=== PATIENT | female | born 1950 | race Caucasian/White ===

== ENCOUNTER 2023-05-20 10:28 | Outpatient (AMB) | payer MEDICARE, SELFPAY ==
--- NOTE | 2023-05-20 10:48 | MHC.OFFVIS ---
Intake Intake Visit Reasons: low back pain Shank Threader Required: No Assessment & Plan Assessment & Plan (1) Lumbar scoliosis: Code(s): M41.9 - Scoliosis, unspecified (2) Chronic pain syndrome: Code(s): G89.4 - Chronic pain syndrome Plan Dear colleague, On 05/20/2023, I saw Capri Arrieta for ongoing right pain that radiates from the back into her groin. We previously evaluated her in our [facility] practice. We referred her for SI joint injections and facet blocks. Unfortunately, does injections are no longer working. She does have a major lumbar scoliosis since her teenage years. I do not think that she is a surgical candidate to correct the scoliosis. I would like to refer to our pain management team to see if she is a candidate for a spinal cord stimulator to address her pain. I spent 15 minutes in this consult for preparation and discussing plan of care. Alejandro Coyle MD, PhD Spine Fellowship Trained Neurosurgeon Director, [facility] Orders: Referrals Pain Management Referral G89.4 - Chronic pain syndrome, M41.9 - Scoliosis, unspecified Coding Level of Care Code Est Pt Level 2 (12641) Diagnoses Lumbar scoliosis M41.9 Chronic pain syndrome G89.4
== END 2023-05-20 11:16 | disposition home or self-care (01) ==
PROVIDERS: PCP Student in an Organized Health Care Education/Training Program; Visit Provider Physician Assistant
DX: M41.9 Scoliosis, unspecified (principal); G89.4 Chronic pain syndrome
CPT/HCPCS: 99212

== ENCOUNTER → 2023-05-20 10:28 | Outpatient (BNVA) | payer MEDICARE, SELFPAY | PROVIDERS: PCP Student in an Organized Health Care Education/Training Program; Visit Provider Physician Assistant | DX: G89.4 Chronic pain syndrome (principal); M41.9 Scoliosis, unspecified | CPT/HCPCS: 99212 ==

== ENCOUNTER 2023-06-03 15:37 | Outpatient (AMB) | payer MEDICARE, SELFPAY ==
--- NOTE | 2023-06-03 15:40 | MHC.OFFVIS ---
Intake Vital Signs 06/03/23 15:57 Height 5 ft Weight 99 lb 8 oz BMI 19.4 BP 140/88 H Blood Pressure Location Rt brachial Position Sitting Respiration 16 Pulse 77 Pulse Source Pulse Oximeter Pulse Oximetry (%) 96 Oxygen Delivery Method Room Air Intake Visit Reasons: Chronic back to right hip Intake Note: patient comes in for initial visit was referred by . Allergies Penicillins Adverse Reaction (Mild, Verified 06/03/23 15:58) Hives pine nuts Allergy (Mild, Uncoded 06/03/23 15:48) Unconscious HPI HPI Comments History of Present Illness Details Capri is very pleasant 73 years old female who presents in my office with complains on pain in the back with radiation into the right lower extremity intermittently to the right thigh in the groin and intermittently all the way down to the foot with corresponding sensation of numbness and feeling of burning and stabbing sensation. She reports that this problem started 6-7 years ago. She reports her pain today is 5 to 6/10. She reports that sometimes the pain is 9 to 10/10. She reports that she cannot sleep normally cannot do activities of daily living she can take care of herself but she cannot function normally. She is on permanent disability. She has severe scoliosis of the lumbar spine with compensatory thoracic changes. She is using cane for ambulation. Weather changes aggravate her pain movements aggravate her pain. Cold applications sometimes make her pain better. Topical medications and oral medications make her pain minimally better. In the past she was under care of [facility] and she was evaluated by neurosurgeon Dr. Coyle. Dr. Coyle did not find any reason to operate on her because of her severe stenosis at L3-L4 area. She denies pelvic organ dysfunction, she denies incontinence with urine and/or stool, she denies urinary retention. She was under care of Dr. Mitchell Smith from [facility], she was subject of multiple sessions of physical therapy , she had chiropractic manipulations of multiple sessions and she had massage therapy with only temporary effect on her pain. Over the years she received multiple epidural steroid injections and L3 L4 on the right at [facility]. Initially she reported 6 or 7 months improvement on epidural steroid injections however with years the epidural steroid injection fade in effectiveness. She went back to Dr. Coyle and she was recommended to have facet joint injections, medial branch blocks and sacroiliac joint injections. Those injections were performed by [facility] and unfortunately those procedures were not effective for pain control. She tried NSAIDs to treat her pain and originally they were helping her but with years she escalated the doses of NSAIDs to 800 mg several times a day. She started to develop widespread bruises on her arms and forearms because of high doses of the NSAIDs and she had to stop the medication. She was referred to my office for consideration of neuromodulation. She had MRI of the lumbar spine performed with [facility], the dictation of the MRI is as below. In terms of tissue damage she reports her pain as shooting, stabbing, sharp, crushing, tugging, ranging, hot burning, searing, tingling, stinging, hurting, heavy, exhausting, suffocating, fearful, terrifying, punishing, killing, radiating, piercing, squeezing, tearing sensation. Past medical history significant for headache, fatigue, dizziness, history of heart murmur digestive problems and arthritis. She also reports venereal disease however she did not specify which one she had in mind. Her past surgical history significant for appendectomy ovarian cyst removal emergency hysterectomy, carpal tunnel surgery. She reports that she smokes [employer] on a up to 6-7 joints today. She drinks alcohol she denies drug addiction she denies alcohol and drug rehabilitation. Review of Systems Const All systems reviewed & are unremarkable except as noted in HPI and below Reports fatigue and Reports lethargy ENT Reports Normal hearing present Card Reports no additional complaints Resp Reports no additional complaints GI Reports no additional complaints Musc Reports as per HPI Skin/Breast Reports as per HPI Neuro Reports no additional complaints, Reports Normal hearing present, Denies Abnormal speech present, Denies confusion and Denies Sensory deficit (Neuro) Psych Denies confusion Endo Reports fatigue Physical Exam Vital Signs: Last Vital Signs Pulse 77 06/03/23 15:57 Resp 16 06/03/23 15:57 BP 140/88 H 06/03/23 15:57 Pulse Ox 96 06/03/23 15:57 Oxygen Delivery Method Room Air 06/03/23 15:57 BMI result Body Mass Index 19.4 Const General: no acute distress; No confusion Orientation/consciousness: patient oriented x3 and No confusion Eyes General: appearance normal, both eyes and all related structures Pupils: Equal, round and reactive pupils present EOM: EOMs intact bilaterally Neck Neck: Yes full ROM Chest Chest palpation & inspection: normal inspection of the chest Resp Effort & Inspection: normal respiratory effort, able to speak in complete sentences, normal respiratory pattern, no audible wheezes and no cough Cardio Jugular venous distension: no JVD GI Inspection: Yes normal to inspection Back/Spine/Pelvis Other: On the expect herrera exaggerated kyphotic curve of the thoracic spine. Severe leftward scoliotic curve of the lumbar spine. Tenderness on palpation over the right SI joint and right sciatic notch. No tenderness on palpation over spinous processes or paraspinal muscles bilaterally. Limited flexion and extension due to pain and significant anatomical distortion. Able to stand on bilateral lower extremities without difficulty able to stand on tiptoes without difficulty. SLR is negative bilaterally Nuno test is negative bilaterally. Neuro General: patient oriented x3, gait normal and No confusion Cranial nerves: Yes CN's II-XII intact bilaterally, Yes Equal, round and reactive pupils present, Yes Normal hearing present and Yes Ability to bilaterally elevate shoulders present Speech: No Abnormal speech present Gait exam (Neuro): Normal gait present Motor exam (neuro): 5/5 motor strength present throughout Sensory Exam: No Sensory deficit (Neuro) Extrem Other: Hip exam no gross deformity no every time no edema no ecchymosis no tenderness of palpation over greater trochanter. No tenderness of palpation of the SI joint range of motion is intact. Lateral and medial hip rotation is negative for pain increase in the groin. General: No pedal edema Psych Speech and movement: Normal speech and movement present Affect: normal affect Attitude: cooperative Thought process: Normal thought process present Thought content: Normal thought content present Insight: Good insight present (Psych) Judgement: Good judgement present (Psych) Results Reviewed Results Reviewed: [facility] MRI of the lumbar spine 10/29/2021. Findings: There is significant scoliotic curvature with dominant level out scoliotic component centered at the L2-L3 level with dextroscoliotic curvature seen in the lower thoracic spine/thoracolumbar junction. There is a right lateral listhesis of T12 on L1 and L1 on L2 there is severe intervertebral disc height loss with endplate remodeling accentuated along the inner margins of the curvature. Marrow edema is seen across the endplates of L3-L4 and L4-L5. The distal spinal cord appears normal. The conus medullaris terminates normally at L1 level. 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 The posterior paraspinal musculature demonstrates fatty atrophy. Intra-abdominal and intrapelvic contents are within normal limits. Spinal level: : Grade 1 retrolisthesis. A symmetric right facet arthropathy. No spinal canal stenosis of foraminal nerve root compression. L2-L3: Grade 1 retrolisthesis with right more than left facet arthropathy. No spinal canal stenosis. Mild narrowing of the right neural foramina without foraminal nerve root compression. L3-L4: Grade 1 retrolisthesis with disc bulging and facet arthropathy. Left-sided synovial facet cyst measuring approximately 5 mm contributes to effacement of the left subarticular zone likely compression of the traversing L4 nerve root. Prominent epidural fat. Severe spinal canal stenosis with thecal sac compression. Moderate to severe right neural foraminal stenosis with mild compression of the exiting right L3 nerve root. L4-5: Disc bulging and left more than right facet arthropathy and underlying disc bulging with prominent epidural fat resulting in severe spinal canal stenosis with compression of the thecal sac and a symmetric compression of the traversing left L5 nerve root. No foraminal nerve root compression. L5-S1: Disc bulging with severe facet arthropathy. Severe left neural foraminal stenosis and with significant compression of exiting left L5 nerve root. A 10 mm cystic focus on the left neural foramina likely presents a synovial facet cyst and contributes to the left-sided foraminal nerve root compression. No spinal canal stenosis. Assessment & Plan Assessment & Plan (1) Chronic pain syndrome: Code(s): G89.4 - Chronic pain syndrome (2) Lumbar scoliosis: Code(s): M41.9 - Scoliosis, unspecified (3) Disc degeneration, lumbar: Code(s): M51.36 - Other intervertebral disc degeneration, lumbar region (4) Vertebrogenic low back pain: Code(s): M54.51 - Vertebrogenic low back pain (5) Radiculopathy, lumbar region: Code(s): M54.16 - Radiculopathy, lumbar region (6) Spinal stenosis, lumbar: Code(s): M48.061 - Spinal stenosis, lumbar region without neurogenic claudication Plan There is some discrepancy in this patient's clinical picture and MRI presentation. On clinical picture she exhibits classical symptoms of the right L3 radiculopathy. However on the MRI it is clearly dictated that the problem is at L3-L4 however it is directed to the passing L4 nerve root compression. That would be different radiculopathy symptoms. Currently after so many years of injections this patient certainly deserves consideration for neuromodulation. Spinal cord stimulator [employer] could be tried for this patient. Originally I gave patient brochure with [employer] SCS but now I think that with her severe scoliosis I need a wake-up test and I need to position the electrodes appropriately with rotational deformity of the spine along side the posterior columns of the spinal cord. Intrathecal pain pump can also be considered for this patient. She is on high dose of daily cannabis so I thing that the best option for her would be bupivacaine or baclofen trial, possibility exist to do clonidine trial as well. Prialt also can be taken into consideration if patient can afford this medication. Attention also was attracted to endplate remodeling of this patient on the MRI dictation with significant marrow edema. This could be an indication to vertebra genic pain of this patient. Intercept procedure could be tried in the case of: A. She does not past psychological evaluation in preparation for the [employer] SCS. B. SCS is tried she does not report pain relieve significant enough to justify implantation of [employer] SCS. In any case I need her to bring me the disc of the MRI from [email or web address] so I can evaluate her endplate changes and vertebra edema and remodeling by myself. She said that she will bring the disc for her appointment to me. Meanwhile will try to schedule her for psychological evaluation. She will give us a call and schedule an appointment as soon as she has the conversation with psychologist. Patient Instructions: I here by testify that I spent 1 hour evaluating this patient, examining this patient, reviewing outside organization records, planning her care and organizing this note. Coding Level of Care Code New Pt Level 5 (45511) Diagnoses Chronic pain syndrome G89.4 Lumbar scoliosis M41.9 Disc degeneration, lumbar M51.36 Vertebrogenic low back pain M54.51 Radiculopathy, lumbar region M54.16 Spinal stenosis, lumbar M48.061
[2023-06-03 15:57] VITALS: BP 140/88; PULSE 77; RESP 16; O2SAT 96; BMI 19.4
== END 2023-06-03 16:11 | disposition home or self-care (01) ==
PROVIDERS: PCP Student in an Organized Health Care Education/Training Program; Visit Provider Anesthesiology
DX: G89.4 Chronic pain syndrome (principal); M41.9 Scoliosis, unspecified; M51.36 Other intervertebral disc degeneration, lumbar region; M54.51 Vertebrogenic low back pain; M54.16 Radiculopathy, lumbar region; M48.061 Spinal stenosis, lumbar region without neurogenic claudication
CPT/HCPCS: 99205

== ENCOUNTER → 2023-06-03 15:37 | Outpatient (BNVA) | payer MEDICARE, SELFPAY | PROVIDERS: PCP Student in an Organized Health Care Education/Training Program; Visit Provider Anesthesiology ==

== ENCOUNTER → 2023-08-28 08:42 | Day surgery (SDC) | payer OTHER, SELFPAY ==
[2023-08-28 09:20] VITALS: BMI 20.8
[2023-08-28 10:28] VITALS: BP 144/75; PULSE 67; RESP 16; TEMP 36.7; O2SAT 97
--- NOTE | 2023-08-28 10:53 | PC.NURSE ---
pt found to be on turmeric. informed and after conversation, surgery canceled due to increased risk of bleeding. pt didn't have it on her list of meds in computer. i added it to her list. she will have to be rescheduled.
== END ==
PROVIDERS: PCP Student in an Organized Health Care Education/Training Program; Visit Provider Anesthesiology
DX: M48.061 Spinal stenosis, lumbar region without neurogenic claudication (principal); Z53.09 Procedure and treatment not carried out because of other contraindication; M41.9 Scoliosis, unspecified; Z79.899 Other long term (current) drug therapy

== ENCOUNTER 2023-09-11 06:02 | Day surgery (SDC) | payer OTHER, SELFPAY ==
[2023-09-09 13:53] VITALS: BMI 19.3
--- NOTE | 2023-09-10 09:44 | HO.ANESPROP2 ---
Documented by User: Kathy Landry NP 09/10/23 09:45 HPI - Anesthesia Eval Consult details Narrative: 73yo F for Spinal Cord Stimulation Trial [facility] Active Problems Active Problems: All Active Problems (Updated 08/28/23 @ 09:16 by Tabitha Segovia RN) Spinal stenosis, lumbar (Acute) Radiculopathy, lumbar region (Acute) Vertebrogenic low back pain (Acute) Disc degeneration, lumbar (Acute) Chronic pain syndrome (Acute) Lumbar scoliosis (Acute) Past Medical History Medical History Hypoglycemia Disc degeneration, lumbar Lumbar scoliosis Anxiety Asthma Back pain Arthritis Elevated cholesterol HTN (hypertension) Thyroid disease GERD (gastroesophageal reflux disease) Surgical History Surgical History Hx of ovarian cystectomy Hx of hysterectomy Hx of appendectomy Hx of tonsillectomy Social History Social History Patient Tobacco Use Status: Never used Tobacco Use of substances other than those prescribed or required for medical reasons: Yes Substance Use Type Other:: last used last night Substance Use Frequency: Daily Are you DNR?: No Advance Directives: No Advance Directives Information Provided: Yes Meds Allergies Allergy/AdvReac Type Severity Reaction Status Date / Time Penicillins AdvReac Mild Hives Verified 09/11/23 06:13 pine nuts Allergy Mild Unconscious Uncoded 06/03/23 15:48 Home Medications Medication Instructions Recorded Confirmed Last Taken Type electrolytes-dextrose oral See Rx Instructions .Route .COMPLEX 06/03/23 09/11/23 Unknown History solution (Pedialyte oral solution) fluticasone 100 mcg-salmeterol 50 1 ea inhalation BID 06/03/23 09/11/23 08/28/23 History mcg/dose blistr powdr for inhalation gabapentin 300 mg capsule 300 mg PO BEDTIME 06/03/23 09/11/23 Unknown History levothyroxine 25 mcg tablet 25 mcg PO DAILY 06/03/23 09/11/23 08/28/23 History lorazepam 0.5 mg tablet 0.5 mg PO BID PRN Anxiety 06/03/23 09/11/23 Unknown History losartan 50 mg tablet 50 mg PO DAILY 06/03/23 09/11/23 08/28/23 History oxybutynin chloride 10 mg 10 mg PO BEDTIME 06/03/23 09/11/23 Unknown History tablet,extended release 24 hr pantoprazole 40 mg tablet,delayed 40 mg PO BID 06/03/23 09/11/23 08/28/23 History release simvastatin 10 mg tablet 10 mg PO BEDTIME 06/03/23 09/11/23 Unknown History valacyclovir 500 mg tablet 500 mg PO DAILY 06/03/23 09/11/23 08/28/23 History cholecalciferol (vitamin D3) 25 25 mcg PO DAILY 08/28/23 09/11/23 Unknown History mcg (1,000 unit) tablet (Vitamin D3) turmeric 400 mg capsule 1,000 mg PO DAILY 08/28/23 09/11/23 08/27/23 History vitamin B complex 1 tab PO DAILY 08/28/23 09/11/23 08/27/23 History Exam Height,Weight and Vital Signs: Height 5 ft Weight 44.906 kg Assessment and Plan Assessment Anesthesia Assessment: Chart Reviewed Documented by User: Keanu Miranda MD 09/11/23 07:43 PMFSH Past Medical History Medical History Hypoglycemia Disc degeneration, lumbar Lumbar scoliosis Anxiety Asthma Back pain Arthritis Elevated cholesterol HTN (hypertension) Thyroid disease GERD (gastroesophageal reflux disease) Family History Family history of problems with anesthesia: No Surgical History Surgical History Hx of ovarian cystectomy Hx of hysterectomy Hx of appendectomy Hx of tonsillectomy History of Problems with Anesthesia: No Social History Social History Patient Tobacco Use Status: Never used Tobacco Use of substances other than those prescribed or required for medical reasons: Yes Substance Use Type Other:: last used last night Substance Use Frequency: Daily Are you DNR?: No Advance Directives: No Advance Directives Information Provided: Yes Meds Allergies Allergy/AdvReac Type Severity Reaction Status Date / Time Penicillins AdvReac Mild Hives Verified 09/11/23 06:13 pine nuts Allergy Mild Unconscious Uncoded 06/03/23 15:48 Home Medications Medication Instructions Recorded Confirmed Last Taken Type electrolytes-dextrose oral See Rx Instructions .Route .COMPLEX 06/03/23 09/11/23 Unknown History solution (Pedialyte oral solution) fluticasone 100 mcg-salmeterol 50 1 ea inhalation BID 06/03/23 09/11/23 08/28/23 History mcg/dose blistr powdr for inhalation gabapentin 300 mg capsule 300 mg PO BEDTIME 06/03/23 09/11/23 Unknown History levothyroxine 25 mcg tablet 25 mcg PO DAILY 06/03/23 09/11/23 08/28/23 History lorazepam 0.5 mg tablet 0.5 mg PO BID PRN Anxiety 06/03/23 09/11/23 Unknown History losartan 50 mg tablet 50 mg PO DAILY 06/03/23 09/11/23 08/28/23 History oxybutynin chloride 10 mg 10 mg PO BEDTIME 06/03/23 09/11/23 Unknown History tablet,extended release 24 hr pantoprazole 40 mg tablet,delayed 40 mg PO BID 06/03/23 09/11/23 08/28/23 History release simvastatin 10 mg tablet 10 mg PO BEDTIME 06/03/23 09/11/23 Unknown History valacyclovir 500 mg tablet 500 mg PO DAILY 06/03/23 09/11/23 08/28/23 History cholecalciferol (vitamin D3) 25 25 mcg PO DAILY 08/28/23 09/11/23 Unknown History mcg (1,000 unit) tablet (Vitamin D3) turmeric 400 mg capsule 1,000 mg PO DAILY 08/28/23 09/11/23 08/27/23 History vitamin B complex 1 tab PO DAILY 08/28/23 09/11/23 08/27/23 History Exam Airway Mallampati Class: II TM Dist: >3cm Neck ROM: Full Denture: Upper and Lower Heart: ok Lungs: ok Assessment and Plan Assessment Anesthesia Assessment: Anesthesia Plan Discussed Final Anesthetic Review Family History of Problems with Anesthesia: No History of Problems with Anesthesia: No NPO: Yes ASA Class: III Final Preanesthetic Review: No Changes in Pt Med Stat, Meds/Allgs Chart Reviewed, Consent Obtained/Reviewed and Anes Risks/Benef Reviewed Patient Risk: Intermediate Procedure Risk: Intermediate Anesthetic Plan Anesthetic Plan: MAC: and Agree w/ Assess. and Plan Disposition: Standard PACU
--- NOTE | ~2023-09-11 | FL_ITS ---
EXAMINATION: XR FLUOROSCOPY WITH IMAGES CLINICAL INFORMATION: Spinal cord stimulation trial COMPARISON: MRI lumbar spine from 10/24/2021 TECHNIQUE: Fluoroscopy Supervised By: Dr. Shannon. Fluoroscopy Time: 4.1 min. Cumulative Dose: 43.3 mGy. DAP: 6.46 Gycm2. Images: 3. FINDINGS: A few images are saved from the procedure. The electrodes for a spinal stimulator project over the posterior epidural space at T6-T9 levels. There is dextroscoliosis of the thoracolumbar spine. There appears to be mild degenerative right lateral listhesis of T12 on L1. FL/FL guidance in OR IMPRESSION: Fluoroscopic imaging guidance utilized during insertion of a spinal stimulator.
[2023-09-11 06:13] VITALS: BMI 18.6
[2023-09-11 06:41] VITALS: BP 123/80; PULSE 73; RESP 16; TEMP 36.7; O2SAT 99
--- NOTE | 2023-09-11 07:23 | MHC.SHP ---
Pre-Procedural Eval Section A Date of Service: 09/11/23 The patient is an INPATIENT: No Changes since office visit: Yes Patient answered all questions The History & Physical has been completed within 30 days and I have reviewed it.: No Section B Chief Complaint: Scoliosis, unspecified Details of Present Illness: as above, disc degeneration lumbar Relevant Family History (Specify if Yes): No Relevant Social History: None Present Medications: see Short Stay Collaborative assessment Medical History: No relevant PMH History of Previous Operations: No relevant previous surgery Allergies: Allergies Allergy/AdvReac Type Severity Reaction Status Date / Time Penicillins AdvReac Mild Hives Verified 09/11/23 06:13 pine nuts Allergy Mild Unconscious Uncoded 06/03/23 15:48 Review of Systems Sugical H&P ROS: Negative: Constitution, Cardiovascular, Respiratory, Neurological, Psychiatric, Hem-Onc, Allergic/Immunologic, Gastrointestinal, Genitourinary, Musculoskeletal, Integumentary, Endocrine and Eyes/Ears/Nose/Throat Exam Surgical H&P Exam: Normal: HEENT, Normal: Heart, Normal: Lungs, Normal: Extremities, Normal: Abdomen, Normal: Skin and Normal: Neurological Plan Diagnosis/Plan: Unchanged I have reviewed the history and physical and performed a pertinent physical examination on my patient. No changes have occurred unless specified. Time Spent With Patient Time: Total time managing care of this patient today __5__ minutes.
--- NOTE | 2023-09-11 09:26 | P.BOP_ITS ---
Brief Operative Note Date of Service: 09/11/23 Pre-op diagnosis: Lumbar scoliosis, disc degeneration lumbar. Post-op diagnosis: same Procedure: Trial of [employer] spinal cord stimulator Implants: None permanent Surgeon: Maco Shannon MD Anesthesia: MAC Was an Knotting Machine Operator Portable used for this Procedure?: No Estimated blood loss (mL): 4 Condition: stable Disposition: PACU
--- NOTE | 2023-09-11 09:28 | W.PM.OPN ---
Operative Note Operative Note Date of Service: 09/11/23 Narrative: Capri is very pleasant 73 years old female came today- to the operating room for trial of spinal cord stimulator [employer] for the treatment of scoliosis and spondylosis of lumbar spine. ?Preoperatively patient received ? clindamycin 900 mg approximately 25 minutes before the procedure. After obtaining informed consent the patient was brought to the operating room, she was positioned prone on operating table, ASA monitor were applied and the patient was moderately to deeply sedated. ?Time-out was performed delineating correct site, side, the nature of the procedure, patient's allergy, preoperative antibiotic if needed.? All operating room staff was participating in OR time-out procedure. Patient's entire back was prepped with Chloraprep twice and draped with full body fenestrated laparoscopy drape.? Sterilely draped C-arm was brought over operating field and square picture of the ?T11 and T12 vertebrae? were demonstrated on the screen.? Severe scoliosis and significant spondylosis of the lumbar and lower thoracic spine were noted on the screen. ?Attention FIRST? was concentrated on the right T11-T12 epidural interspace.? The location of the projection of the body of the L1 pedicle on the right was found on the skin using C-arm.? This location was injected with mixture of lidocaine 2% and Marcaine 0.5% - 5 cc.? After that 11 blade was used to make a mauricio on the skin.? 10 cm 14 gauge? introducer epidural needle was inserted through the mauricio and advanced to right T11-T12 epidural interspace.? The advancement of the needle was performed on anterior posterior and lateral views.?Loss of resistance to air? technique were used to locate epidural space., get our wire was used to confirm epidural space. epidural lead was inserted through the needle and? advanced in the strict midline to T7 top vertebra. The position of the electrode was in the most posterior epidural space. ? .? After that? the location of the projection of the LEFT pedicle center of the? L1 vertebra was found on the skin using C-arm.? This location was injected with mixture of lidocaine 2% and Marcaine 0.5% 5 cc.? After that 11 blade was used to make a mauricio on the skin.? 10 cm 14 gauge introducer epidural needle was inserted through the mauricio and advanced to T11-T12 epidural interspace.? The advancement of the needle was performed on anterior posterior and lateral views.? Guitar wire and loss of resistance to air technique were used to locate epidural space.? When guitar wire was spread in the epidural fashion, epidural lead was inserted through the needle and advanced to the middle of? top of T7 epidural interspace slightly? right to the existing electrode. Lateral view demonstrated electrodes in the posterior epidural space. Impedance was checked, 1 of the testing cables appeared to be defective and it was replaced? and after that the impedance- was found to be satisfactory.? The patient was awaken and stimulation of both electrodes was performed. The patient reported stimulation in the anterior chest as if the electrodes would be positioned more anteriorly. Most likely it is because of the position of her thoracolumbar scoliosis and rotation of the spinal cord inside of the spinal canal. The centrally positioned electrode was withdrawn down to T11-T12 interspace and it was taken to the right side of positioned on the right inserted from the left electrode in the posterior epidural space at the top of T7 vertebra. On the lateral view electrode still were demonstrated posteriorly.. Stimulation was repeated. The patient however continued to complain on stimulation in the chest. Than the right inserted electrode was taken down to the T11- interspace and it was advanced now right to existing electrode again into the posterior epidural space at the level of T7 vertebra at the top. After that the patient reported stimulation going down to bilateral lower extremities. It looks like that we found physiological posterior spinal cord position and stimulated it appropriately. After that the patient was re sedated ?the needles were removed, the stylette wires were removed from the epidural leads.? The anchoring devices were mounted on the leads and advanced to the level of the skin.? The anchoring devices were sutured with two 0-0 ?Silk sutures per each anchor to the skin of the patient. The central fixation screw of each anchor was rotated until three clicks were heard. The leads were connected to testing device.? Bacitracin ointment was applied to the entrance point of bilateral wires.? Sterile dressing was applied to the patient's back.? The testing device was also taped to the patient's back.? the patient tolerated procedure well she was awaken and taken outside of the operating room to recovery room. She recovered uneventfully.
[2023-09-11 09:32] VITALS: BP 103/66; PULSE 63; RESP 18; TEMP 36.9; O2SAT 100
[2023-09-11 09:47] VITALS: BP 153/102; PULSE 58; RESP 20; O2SAT 100
[2023-09-11 10:02] VITALS: BP 162/83; PULSE 59; RESP 20; TEMP 36.8; O2SAT 100
== END 2023-09-11 11:22 | disposition home or self-care (01) ==
PROVIDERS: Visit Provider Anesthesiology
PROC: (CPT 63650; principal; 2023-09-11 07:30)
DX: M41.9 Scoliosis, unspecified (principal); G89.4 Chronic pain syndrome; M48.061 Spinal stenosis, lumbar region without neurogenic claudication; M51.36 Other intervertebral disc degeneration, lumbar region; M54.51 Vertebrogenic low back pain; M54.16 Radiculopathy, lumbar region; M47.816 Spondylosis without myelopathy or radiculopathy, lumbar region; M47.814 Spondylosis without myelopathy or radiculopathy, thoracic region; R20.0 Anesthesia of skin; R20.2 Paresthesia of skin; Z88.0 Allergy status to penicillin; F12.90 Cannabis use, unspecified, uncomplicated
CPT/HCPCS: 63650 ×2; C1713; C1778; J0736; J2704; J2795; J3010

== ENCOUNTER → 2023-09-11 06:02 | Outpatient (BNV) | payer OTHER, SELFPAY | PROVIDERS: Visit Provider Anesthesiology | DX: M41.9 Scoliosis, unspecified (principal) | CPT/HCPCS: 63650 ==

== ENCOUNTER 2023-09-17 09:53 | Outpatient (AMB) | payer OTHER, SELFPAY ==
--- NOTE | 2023-09-17 09:54 | MHC.OFFVIS ---
Intake Vital Signs 09/17/23 10:15 Height 5 ft Weight 95 lb BMI 18.6 BP 116/84 Blood Pressure Location Lt brachial Position Sitting Respiration 14 Pulse 79 Pulse Source Pulse Oximeter Pulse Oximetry (%) 99 Oxygen Delivery Method Room Air Intake Visit Reasons: S/p [employer] SCS Trial Intake Note: Patient comes in for [employer] scs trial. Reports pain 7/10. Allergies Penicillins Adverse Reaction (Mild, Verified 09/17/23 10:15) Hives pine nuts Allergy (Mild, Uncoded 06/03/23 15:48) Unconscious HPI HPI Comments History of Present Illness Details Capri is back in my office status post trial of [employer] spinal cord stimulator. The trial was very difficult to perform. I had to chief position of the epidural leads 3 times more to the right to finally obtain proper stimulation. The patient has severe scoliosis with prominent rotational element and her posterior spinal cord position is not corresponds to posterior sq image of the thoracic spine. She came to me today with report that she had 85-90 % pain alleviation with her spinal cord stimulation device. She was very upset when I told her that I need to remove the spinal cord stimulator leads today. She wants me to schedule her for the procedure as soon as possible. I promised to her that I will expedite this procedure as much as I can. The dressing was removed and spinal cord stimulator site insertions were prepped with ChloraPrep. Anchoring sutures were severed and the spinal cord stimulator leads were removed. The tips were intact. There were no pathological discharge, no swelling, no redness, no tenderness on palpation. Dry dressing with Tegaderm was applied. The patient was explained to avoid showers for next 24-48 hours. Prior: complains on pain in the back with radiation into the right lower extremity intermittently to the right thigh in the groin and intermittently all the way down to the foot with corresponding sensation of numbness and feeling of burning and stabbing sensation. She reports that this problem started 6-7 years ago. She reports her pain today is 5 to 6/10. She reports that sometimes the pain is 9 to 10/10. Topical medications and oral medications make her pain minimally better. In the past she was under care of [facility] and she was evaluated by neurosurgeon Dr. Coyle. Dr. Coyle did not find any reason to operate on her because of her severe stenosis at L3-L4 area. She denies pelvic organ dysfunction, she denies incontinence with urine and/or stool, she denies urinary retention. She was under care of Dr. Mitchell Smith from [facility], she was subject of multiple sessions of physical therapy , she had chiropractic manipulations of multiple sessions and she had massage therapy with only temporary effect on her pain. Over the years she received multiple epidural steroid injections and L3 L4 on the right at [facility]. Initially she reported 6 or 7 months improvement on epidural steroid injections however with years the epidural steroid injection fade in effectiveness. She went back to Dr. Coyle and she was recommended to have facet joint injections, medial branch blocks and sacroiliac joint injections. Those injections were performed by [facility] and unfortunately those procedures were not effective for pain control. She tried NSAIDs to treat her pain and originally they were helping her but with years she escalated the doses of NSAIDs to 800 mg several times a day. She started to develop widespread bruises on her arms and forearms because of high doses of the NSAIDs and she had to stop the medication. [facility] Medical History (Updated 09/17/23 @ 15:10 by Maco Shannon MD) Chronic pain syndrome Hypoglycemia Disc degeneration, lumbar Lumbar scoliosis Anxiety Asthma Back pain Arthritis Elevated cholesterol HTN (hypertension) Thyroid disease GERD (gastroesophageal reflux disease) Surgical History Hx of ovarian cystectomy Hx of hysterectomy Hx of appendectomy Hx of tonsillectomy Social History Patient Tobacco Use Status: Never used Tobacco Review of Systems Const All systems reviewed & are unremarkable except as noted in HPI and below ENT Reports Normal hearing present Neuro Reports Normal hearing present, Denies Abnormal speech present, Denies confusion and Denies Sensory deficit (Neuro) Psych Denies confusion Physical Exam Vital Signs: Last Vital Signs Pulse 79 09/17/23 10:15 Resp 14 09/17/23 10:15 BP 116/84 09/17/23 10:15 Pulse Ox 99 09/17/23 10:15 Oxygen Delivery Method Room Air 09/17/23 10:15 BMI result Body Mass Index 18.6 Const General: no acute distress; No confusion Orientation/consciousness: patient oriented x3 and No confusion Eyes General: appearance normal, both eyes and all related structures Pupils: Equal, round and reactive pupils present EOM: EOMs intact bilaterally Neck Neck: Yes full ROM Chest Chest palpation & inspection: normal inspection of the chest Resp Effort & Inspection: normal respiratory effort, able to speak in complete sentences, normal respiratory pattern, no audible wheezes and no cough Cardio Jugular venous distension: no JVD GI Inspection: Yes normal to inspection Back/Spine/Pelvis Other: On the e inspection exaggerated kyphotic curve of the thoracic spine. Severe leftward scoliotic curve of the lumbar spine. Tenderness on palpation over the right SI joint and right sciatic notch. No tenderness on palpation over spinous processes or paraspinal muscles bilaterally. Limited flexion and extension due to pain and significant anatomical distortion. Able to stand on bilateral lower extremities without difficulty able to stand on tiptoes without difficulty. SLR is negative bilaterally Nuno test is negative bilaterally. Neuro General: patient oriented x3, gait normal and No confusion Cranial nerves: Yes CN's II-XII intact bilaterally, Yes Equal, round and reactive pupils present, Yes Normal hearing present and Yes Ability to bilaterally elevate shoulders present Speech: No Abnormal speech present Gait exam (Neuro): Normal gait present Motor exam (neuro): 5/5 motor strength present throughout Sensory Exam: No Sensory deficit (Neuro) Extrem Other: Hip exam no gross deformity no every time no edema no ecchymosis no tenderness of palpation over greater trochanter. No tenderness of palpation of the SI joint range of motion is intact. Lateral and medial hip rotation is negative for pain increase in the groin. General: No pedal edema Psych Speech and movement: Normal speech and movement present Affect: normal affect Attitude: cooperative Thought process: Normal thought process present Thought content: Normal thought content present Insight: Good insight present (Psych) Judgement: Good judgement present (Psych) Results Reviewed Results Reviewed: ray[facility] MRI of the lumbar spine 10/29/2021. Findings: There is significant scoliotic curvature with dominant level out scoliotic component centered at the L2-L3 level with dextroscoliotic curvature seen in the lower thoracic spine/thoracolumbar junction. There is a right lateral listhesis of T12 on L1 and L1 on L2 there is severe intervertebral disc height loss with endplate remodeling accentuated along the inner margins of the curvature. Marrow edema is seen across the endplates of L3-L4 and L4-L5. The distal spinal cord appears normal. The conus medullaris terminates normally at L1 level. 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 The posterior paraspinal musculature demonstrates fatty atrophy. Intra-abdominal and intrapelvic contents are within normal limits. Spinal level: : Grade 1 retrolisthesis. A symmetric right facet arthropathy. No spinal canal stenosis of foraminal nerve root compression. L2-L3: Grade 1 retrolisthesis with right more than left facet arthropathy. No spinal canal stenosis. Mild narrowing of the right neural foramina without foraminal nerve root compression. L3-L4: Grade 1 retrolisthesis with disc bulging and facet arthropathy. Left-sided synovial facet cyst measuring approximately 5 mm contributes to effacement of the left subarticular zone likely compression of the traversing L4 nerve root. Prominent epidural fat. Severe spinal canal stenosis with thecal sac compression. Moderate to severe right neural foraminal stenosis with mild compression of the exiting right L3 nerve root. L4-5: Disc bulging and left more than right facet arthropathy and underlying disc bulging with prominent epidural fat resulting in severe spinal canal stenosis with compression of the thecal sac and a symmetric compression of the traversing left L5 nerve root. No foraminal nerve root compression. L5-S1: Disc bulging with severe facet arthropathy. Severe left neural foraminal stenosis and with significant compression of exiting left L5 nerve root. A 10 mm cystic focus on the left neural foramina likely presents a synovial facet cyst and contributes to the left-sided foraminal nerve root compression. No spinal canal stenosis. Assessment & Plan Assessment & Plan (1) Chronic pain syndrome: Code(s): G89.4 - Chronic pain syndrome (2) Lumbar scoliosis: Code(s): M41.9 - Scoliosis, unspecified (3) Disc degeneration, lumbar: Code(s): M51.36 - Other intervertebral disc degeneration, lumbar region (4) Vertebrogenic low back pain: Code(s): M54.51 - Vertebrogenic low back pain (5) Radiculopathy, lumbar region: Code(s): M54.16 - Radiculopathy, lumbar region (6) Spinal stenosis, lumbar: Code(s): M48.061 - Spinal stenosis, lumbar region without neurogenic claudication Plan There is some discrepancy in this patient's clinical picture and MRI presentation. On clinical picture she exhibits classical symptoms of the right L3 radiculopathy. However on the MRI it is clearly dictated that the problem is at L3-L4 however it is directed to the passing L4 nerve root compression. That would be different radiculopathy symptoms. Currently after so many years of injections this patient certainly deserves consideration for neuromodulation. Spinal cord stimulator [employer] trial resulted in very profound pain relief.. I will schedule this patient for implantation of the [employer] spinal cord stimulator. It will be done under sedation with wake-up test. Part Intrathecal pain pump can also be considered for this patient. She is on high dose of daily cannabis so I thing that the best option for her would be bupivacaine or baclofen trial, possibility exist to do clonidine trial as well. Prialt also can be taken into consideration if patient can afford this medication. Attention also was attracted to endplate remodeling of this patient on the MRI dictation with significant marrow edema. This could be an indication to vertebra genic pain of this patient. Intercept procedure could still be tried for this patient. I recommended her still to bring me the image disc from prior MRI records [facility]. Patient Instructions: I here by testify that I spent 38 minutes in conversation with this patient, evaluating prior records, planning her procedure and organizing this note. Coding Level of Care Code Est Pt Level 4 (55111) Diagnoses Chronic pain syndrome G89.4 Lumbar scoliosis M41.9 Disc degeneration, lumbar M51.36 Vertebrogenic low back pain M54.51 Radiculopathy, lumbar region M54.16 Spinal stenosis, lumbar M48.061
[2023-09-17 10:15] VITALS: BP 116/84; PULSE 79; RESP 14; O2SAT 99; BMI 18.6
== END 2023-09-17 10:11 | disposition home or self-care (01) ==
LOC: HO.PMC 09:53
PROVIDERS: Visit Provider Anesthesiology
DX: G89.4 Chronic pain syndrome (principal); M41.9 Scoliosis, unspecified; M51.36 Other intervertebral disc degeneration, lumbar region; M54.51 Vertebrogenic low back pain; M54.16 Radiculopathy, lumbar region; M48.061 Spinal stenosis, lumbar region without neurogenic claudication
CPT/HCPCS: 99024

== ENCOUNTER → 2023-09-17 09:53 | Outpatient (BNVA) | payer OTHER, SELFPAY | PROVIDERS: Visit Provider Anesthesiology | DX: G89.4 Chronic pain syndrome (principal); M41.9 Scoliosis, unspecified; M51.36 Other intervertebral disc degeneration, lumbar region; M54.51 Vertebrogenic low back pain; M54.16 Radiculopathy, lumbar region; M48.061 Spinal stenosis, lumbar region without neurogenic claudication | CPT/HCPCS: 99212 ==

== ENCOUNTER 2023-11-13 07:13 | Day surgery (SDC) | payer OTHER, SELFPAY ==
[2023-11-11 13:53] VITALS: BMI 18.6
--- NOTE | 2023-11-11 15:13 | HO.ANESPROP2 ---
HPI - Anesthesia Eval Consult details Narrative: 73yo F for Spinal Cord Stimulation Implant s/p trial 09/11/23 with [employer] [facility] Active Problems Active Problems: All Active Problems (Updated 09/17/23 @ 15:10 by Maco Shannon MD) Chronic pain syndrome (Acute) Spinal stenosis, lumbar (Acute) Radiculopathy, lumbar region (Acute) Vertebrogenic low back pain (Acute) Disc degeneration, lumbar (Acute) Lumbar scoliosis (Acute) Past Medical History Medical History Chronic pain syndrome Hypoglycemia Disc degeneration, lumbar Lumbar scoliosis Anxiety Asthma Back pain Arthritis Elevated cholesterol HTN (hypertension) Thyroid disease GERD (gastroesophageal reflux disease) Family History Family history of problems with anesthesia: No Surgical History Surgical History Hx of ovarian cystectomy Hx of hysterectomy Hx of appendectomy Hx of tonsillectomy History of Problems with Anesthesia: No Social History Social History Patient Tobacco Use Status: Never used Tobacco Second Hand Smoke Exposure: No Meds Allergies Allergy/AdvReac Type Severity Reaction Status Date / Time Penicillins AdvReac Mild Hives Verified 09/17/23 10:15 pine nuts Allergy Mild Unconscious Uncoded 06/03/23 15:48 Home Medications Medication Instructions Recorded Confirmed Last Taken Type electrolytes-dextrose oral See Rx Instructions .Route .COMPLEX 06/03/23 09/11/23 Unknown History solution (Pedialyte oral solution) fluticasone 100 mcg-salmeterol 50 1 ea inhalation BID 06/03/23 09/11/23 08/28/23 History mcg/dose blistr powdr for inhalation gabapentin 300 mg capsule 300 mg PO BEDTIME 06/03/23 09/11/23 Unknown History levothyroxine 25 mcg tablet 25 mcg PO DAILY 06/03/23 09/11/23 08/28/23 History lorazepam 0.5 mg tablet 0.5 mg PO BID PRN Anxiety 06/03/23 09/11/23 Unknown History losartan 50 mg tablet 50 mg PO DAILY 06/03/23 09/11/23 08/28/23 History oxybutynin chloride 10 mg 10 mg PO BEDTIME 06/03/23 09/11/23 Unknown History tablet,extended release 24 hr pantoprazole 40 mg tablet,delayed 40 mg PO BID 06/03/23 09/11/23 08/28/23 History release simvastatin 10 mg tablet 10 mg PO BEDTIME 06/03/23 09/11/23 Unknown History valacyclovir 500 mg tablet 500 mg PO DAILY 06/03/23 09/11/23 08/28/23 History cholecalciferol (vitamin D3) 25 25 mcg PO DAILY 08/28/23 09/11/23 Unknown History mcg (1,000 unit) tablet (Vitamin D3) turmeric 400 mg capsule 1,000 mg PO DAILY 08/28/23 09/11/23 08/27/23 History vitamin B complex 1 tab PO DAILY 08/28/23 09/11/23 08/27/23 History Exam Height,Weight and Vital Signs: Height 5 ft Weight 43.091 kg Assessment and Plan Assessment Anesthesia Assessment: Chart Reviewed Final Anesthetic Review Family History of Problems with Anesthesia: No History of Problems with Anesthesia: No
[2023-11-13] VITALS (10 sets, daily range): BP systolic 83–136; BP diastolic 50–95; PULSE 52–68; RESP 15–18; TEMP 36.5–36.7; O2SAT 94–99; BMI 18.6
--- NOTE | ~2023-11-13 | FL_ITS ---
EXAMINATION: XR FLUOROSCOPY WITH IMAGES CLINICAL INFORMATION: Spinal stimulator implant. COMPARISON: CT cervical spine dated 02/08/2023. TECHNIQUE: Fluoroscopy Supervised By: Dr. Maco Shannon. Fluoroscopy Time: 7.3 minutes. Cumulative Dose: 92.9 mGy. DAP: 12.8 Gycm2. Images: 5. FINDINGS: The submitted images show placement of a spinal stimulator device with electrodes projecting over the mid to lower thoracic spine. FL/FL guidance in OR IMPRESSION: Intraoperative fluoroscopic guidance is provided spinal stimulator implant placement. Please see the patient's Operative Report for full procedural details.
--- NOTE | 2023-11-13 07:28 | P.CONAN_ITS ---
[facility] Active Problems Active Problems: All Active Problems (Updated 09/17/23 @ 15:10 by Maco Shannon MD) Chronic pain syndrome (Acute) Spinal stenosis, lumbar (Acute) Radiculopathy, lumbar region (Acute) Vertebrogenic low back pain (Acute) Disc degeneration, lumbar (Acute) Lumbar scoliosis (Acute) Past Medical History Medical History Chronic pain syndrome Hypoglycemia Disc degeneration, lumbar Lumbar scoliosis Anxiety Asthma Back pain Arthritis Elevated cholesterol HTN (hypertension) Thyroid disease GERD (gastroesophageal reflux disease) Functional capacity: independent ambulation Patient : No Family History Family history of problems with anesthesia: No Surgical History Surgical History Hx of ovarian cystectomy Hx of hysterectomy Hx of appendectomy Hx of tonsillectomy History of Problems with Anesthesia: No Social History Social History Patient Tobacco Use Status: Never used Tobacco Advance Directives: No Advance Directives Information Provided: Yes Meds Allergies Allergy/AdvReac Type Severity Reaction Status Date / Time Penicillins AdvReac Mild Hives Verified 09/17/23 10:15 pine nuts Allergy Mild Unconscious Uncoded 06/03/23 15:48 Home Medications Medication Instructions Recorded Confirmed Last Taken Type electrolytes-dextrose oral See Rx Instructions .Route .COMPLEX 06/03/23 09/11/23 Unknown History solution (Pedialyte oral solution) fluticasone 100 mcg-salmeterol 50 1 ea inhalation BID 06/03/23 09/11/23 08/28/23 History mcg/dose blistr powdr for inhalation gabapentin 300 mg capsule 300 mg PO BEDTIME 06/03/23 09/11/23 Unknown History levothyroxine 25 mcg tablet 25 mcg PO DAILY 06/03/23 09/11/23 08/28/23 History lorazepam 0.5 mg tablet 0.5 mg PO BID PRN Anxiety 06/03/23 09/11/23 Unknown History losartan 50 mg tablet 50 mg PO DAILY 06/03/23 09/11/23 08/28/23 History oxybutynin chloride 10 mg 10 mg PO BEDTIME 06/03/23 09/11/23 Unknown History tablet,extended release 24 hr pantoprazole 40 mg tablet,delayed 40 mg PO BID 06/03/23 09/11/23 08/28/23 History release simvastatin 10 mg tablet 10 mg PO BEDTIME 06/03/23 09/11/23 Unknown History valacyclovir 500 mg tablet 500 mg PO DAILY 06/03/23 09/11/23 08/28/23 History cholecalciferol (vitamin D3) 25 25 mcg PO DAILY 08/28/23 09/11/23 Unknown History mcg (1,000 unit) tablet (Vitamin D3) turmeric 400 mg capsule 1,000 mg PO DAILY 08/28/23 09/11/23 08/27/23 History vitamin B complex 1 tab PO DAILY 08/28/23 09/11/23 08/27/23 History Exam Height,Weight and Vital Signs: Height 5 ft Weight 43.091 kg Airway Mallampati Class: II TM Dist: >3cm Neck ROM: Full Heart: RRR Lungs: CTA Assessment and Plan Assessment Anesthesia Assessment: Anesthesia Plan Discussed Final Anesthetic Review Family History of Problems with Anesthesia: No History of Problems with Anesthesia: No NPO: Yes ASA Class: II Final Preanesthetic Review: Meds/Allgs Chart Reviewed, Consent Obtained/Reviewed and Anes Risks/Benef Reviewed Patient Risk: Low Procedure Risk: Low Anesthetic Plan Anesthetic Plan: MAC: Disposition: Standard PACU
[2023-11-13] MEDS: Lactated Ringers 1,000 ML 100 ML IVCONT (08:26)
--- NOTE | 2023-11-13 12:14 | PM.OP ---
Brief Operative Note Date of Service: 11/13/23 Pre-op diagnosis: Chronic pain syndrome, scoliosis, spondylosis. Post-op diagnosis: same Procedure: Implantation of [employer] spinal cord stimulator. Implants: Alpha battery [employer] as well as 2 epidural electrodes. Surgeon: Maco Shannon MD Anesthesia: MAC Was an Telehealth Case Manager used for this Procedure?: No Estimated blood loss (mL): 15 Condition: stable Disposition: PACU
--- NOTE | 2023-11-13 12:21 | W.PM.OPN ---
Operative Note Operative Note Date of Service: 11/13/23 Narrative: Implantation of spinal cord stimulator [employer]. Kaleb she is very pleasant 73 years old female who came today into the operating room for implantation of spinal cord stimulator for the treatment of chronic pain syndrome secondary to spondylosis and scoliosis of thoracolumbar spine.. She had successful trial of the SCS [employer]. Preoperatively? patient received ?clindamycin 900 mg approximately 30 minutes before the procedure. After obtaining informed consent the patient was brought to the operating room, she was positioned prone on the OR table, ? [employer] monitors were applied and patient was sedated. ?Time-out was performed delineating correct site, side, the nature of the procedure, patient's allergy, preoperative antibiotic if needed.? All operating room staff was participating in OR time-out procedure. Patient's entire back was prepped with ChloraPrep twice and draped with full body fenestrated drape and ioban film.? Sterilely draped C-arm was brought over operating field and square picture of?T11-T12 L1 vertebrae as were demonstrated on the screen.? The skin in the projection of the spinous processes of T12-L1 was? infiltrated with the mixture of lidocaine 2% and ropivacaine 0.5% i.? After that? number 10 Blade scalpel was used to perform vertical 6 cm? long incision.? the incision was widened and deepened until the prevertebral fascia was reached. Thorough hemostasis was obtained,? After that attention? was concentrated on the T10-T11 epidural interspace.? The location of the projection of the right pedicle center of the? T12 vertebra was found on the fascia using C-arm.? This location was injected with mixture of lidocaine 2% and Marcaine 0.5% 5 cc.? ? 10 cm 14 gauge? introducer epidural needle was inserted through the prevertebral fascia and advanced to? T10-T11 right epidural interspace.? The advancement of the needle was performed on anterior posterior and lateral views.? Guitar wire and loss of resistance technique were used to locate epidural space.? When guitar wire was spread in the epidural fashion, epidural lead was inserted through the needle and it was advanced to the posterior epidural space slightly right to the midline.The lead was advanced slightly red to the midline midline? approximately to the? top of T7 vertebra in the posterior epidural space. Position of the lead in the posterior epidural space was verified. ? After that location of the projection of the LEFT pedicle center of the T12 vertebra was found using C-arm.? This location was injected with mixture of lidocaine 2% and Marcaine 0.5% 5 cc.?10 cm 14 gauge? introducer epidural needle was inserted through the fascia and advanced to T10-T11 left epidural interspace.? The advancement of the needle was performed on anterior posterior and lateral views.? Guitar wire and loss of resistance technique were used to locate epidural space.? When guitar wire was spread in the epidural fashion, epidural lead was inserted through the needle and it was advanced to the posterior epidural space.The lead was advanced slightly left to the existing electrode to the?top of T 7 vertebra in the posterior epidural space. .?On the lateral view the leads were demonstrated in the posterior epidural space. At this moment the patient was started to be awaken to perform a wake-up test. The patient was very restless waking up. Despite her small size she was wiggling on the operating table so strong that it required operating room nurse who is big and strong man as well as myself and my electronic development technician to hold her down and prevents her from falling off of the operating table. This is all despite the fact that patient was secured to the operative table before the procedure with wide security belt at her hips level. The decision was made to abandon the wake-up trial and re- sedated the patient. At this moment I positioned electrodes as close as possible to the locations of the electrode on the image she had during the trial., the needles were removed, the stylette wires were removed from the epidural leads.? The anchoring devices were dislodged on the leads and advanced to the level of the prevertebral fascia.?After that the anchoring devices were sutured to the prevertebral fascia using Tycron 0-0 sutures - 2 sutures per each anchoroing device?. The fixation scews were locked until 3 clicks heard. The wound was irrigated with vancomycin containing saline and packed with the 4x4 soaked with the same saline solution. After that attention was concentrated on the left? upper buttock of the patient ? were the decision was made to implant the battery.? 2.5 cm below the top of the left iliac crest horizontal incision was made 6 cm long using 10 blade scalpel, hemostasis was performed using? electric cautery..? Using sharp and dull dissection the pocket for the battery was formed in caudad direction from the incision.? Thorough hemostasis was performed.? After that the? wound pocket was? irrigated with vancomycin containing normal saline and tunneling device was used to connect midline incision and upper buttock incision.? The epidural leads were dislodged from midline incision to the buttock incision through the tunneling device.? After that they were connected to the alpha battery? and impedance was checked? and found to be satisfactory with all leads connected.? There were no electrodes with low impedance noted.? Anchoring? screws were fixed on the back of the battery.? Tycron of 0- 0 sutures were applied to the superior lateral and superior medial corners of the upper portion of the pocket? wound and after that the anchoring sutures were connected to the anchoring orifices on the battery.? The leads were gathered behind the body of the battery and battery was dislodged into the? subcutaneous pocket wound.? The sutures were tied and? irrigation was repeated.? After that?0-0 Polysorb sutures?were used to close the? both wounds and the 0-2 polisorb sutures were used to apptoximate the level of the skin , [place] were applied to the skin and bacitracin ointment was applied to the staple lines. The sterile dressing comprised of several 4x4 for each wound was affixed to the skin using tegaderm. The patient was transfered supine on the stretcher,? awaken, transferred stable to the PACU
== END 2023-11-13 14:30 | disposition home or self-care (01) ==
PROVIDERS: Visit Provider Anesthesiology
PROC: (CPT 63685; principal; 2023-11-13 09:30)
DX: M47.815 Spondylosis without myelopathy or radiculopathy, thoracolumbar region (principal); G89.4 Chronic pain syndrome; M41.9 Scoliosis, unspecified; M51.36 Other intervertebral disc degeneration, lumbar region; M54.16 Radiculopathy, lumbar region; M54.51 Vertebrogenic low back pain; M48.061 Spinal stenosis, lumbar region without neurogenic claudication; I10 Essential (primary) hypertension; E78.00 Pure hypercholesterolemia, unspecified; E16.2 Hypoglycemia, unspecified; J45.909 Unspecified asthma, uncomplicated; Z79.51 Long term (current) use of inhaled steroids; Z79.899 Other long term (current) drug therapy; Z88.0 Allergy status to penicillin
CPT/HCPCS: 63685; 63650 ×2; C1778; C1787; C1820; J0131; J0736; J1920; J2704; J2795; J3010; J3370

== ENCOUNTER → 2023-11-13 07:13 | Outpatient (BNV) | payer OTHER, SELFPAY | PROVIDERS: Visit Provider Anesthesiology | DX: G89.4 Chronic pain syndrome (principal); M41.9 Scoliosis, unspecified; M47.9 Spondylosis, unspecified | CPT/HCPCS: 63650; 63685 ==

== ENCOUNTER 2023-11-19 13:19 | Outpatient (AMB) | payer OTHER, SELFPAY ==
--- NOTE | 2023-11-19 13:26 | MHC.OFFVIS ---
Intake Vital Signs 11/19/23 13:34 Height 5 ft Weight 96 lb 6 oz BMI 18.8 BP 140/74 H Blood Pressure Location Lt brachial Position Sitting Respiration 12 Pulse 62 Pulse Source Pulse Oximeter Pulse Oximetry (%) 98 Oxygen Delivery Method Room Air Intake Visit Reasons: S/p [employer] SCS IMPLANT 11/13/23 Intake Note: Patient comes in for post-op appointment S/P [employer] SCS Implant. Reports pain 0/10. Allergies Penicillins Adverse Reaction (Mild, Verified 11/19/23 13:37) Hives pine nuts Allergy (Mild, Uncoded 06/03/23 15:48) Unconscious HPI HPI Comments History of Present Illness Details Capri is back in my office status post implant of [employer] spinal cord stimulator. The electrodes this time were positioned appropriately. She reports minimal pain from postoperative wounds. There is no redness, no pathological discharge, no swelling, no tenderness on palpation. The incision sites were prepped with ChloraPrep and Tegaderm dressings were applied at the sides with bacitracin ointment. Patient will be scheduled for removal of the christian in 1 week, possibly later. Patient reports pain 0/10 today. She reports excellent mobility, excellent activities of daily living good social interactions. The activity limitations were explained to the patient. She was explained about heavy lifting , torso movements, wearing abdominal binder. Limitations on showers was explained to the patient as well. Prior: complains on pain in the back with radiation into the right lower extremity intermittently to the right thigh in the groin and intermittently all the way down to the foot with corresponding sensation of numbness and feeling of burning and stabbing sensation. She reports that this problem started 6-7 years ago. She reports her pain today is 5 to 6/10. She reports that sometimes the pain is 9 to 10/10. Topical medications and oral medications make her pain minimally better. In the past she was under care of [facility] and she was evaluated by neurosurgeon Dr. Coyle. Dr. Coyle did not find any reason to operate on her because of her severe stenosis at L3-L4 area. She denies pelvic organ dysfunction, she denies incontinence with urine and/or stool, she denies urinary retention. She was under care of Dr. Mitchell Smith from [facility], she was subject of multiple sessions of physical therapy , she had chiropractic manipulations of multiple sessions and she had massage therapy with only temporary effect on her pain. Over the years she received multiple epidural steroid injections and L3 L4 on the right at [facility]. Initially she reported 6 or 7 months improvement on epidural steroid injections however with years the epidural steroid injection fade in effectiveness. She went back to Dr. Coyle and she was recommended to have facet joint injections, medial branch blocks and sacroiliac joint injections. Those injections were performed by [facility] and unfortunately those procedures were not effective for pain control. She tried NSAIDs to treat her pain and originally they were helping her but with years she escalated the doses of NSAIDs to 800 mg several times a day. She started to develop widespread bruises on her arms and forearms because of high doses of the NSAIDs and she had to stop the medication. [facility] Medical History Chronic pain syndrome Hypoglycemia Disc degeneration, lumbar Lumbar scoliosis Anxiety Asthma Back pain Arthritis Elevated cholesterol HTN (hypertension) Thyroid disease GERD (gastroesophageal reflux disease) Surgical History Hx of ovarian cystectomy Hx of hysterectomy Hx of appendectomy Hx of tonsillectomy Social History Patient Tobacco Use Status: Never used Tobacco Second Hand Smoke Exposure: No Review of Systems Const All systems reviewed & are unremarkable except as noted in HPI and below ENT Reports Normal hearing present Neuro Reports Normal hearing present, Denies Abnormal speech present, Denies confusion and Denies Sensory deficit (Neuro) Psych Denies confusion Physical Exam Vital Signs: Last Vital Signs Pulse 62 11/19/23 13:34 Resp 12 11/19/23 13:34 BP 140/74 H 11/19/23 13:34 Pulse Ox 98 11/19/23 13:34 Oxygen Delivery Method Room Air 11/19/23 13:34 BMI result Body Mass Index 18.8 Const General: no acute distress; No confusion Orientation/consciousness: patient oriented x3 and No confusion Eyes General: appearance normal, both eyes and all related structures Pupils: Equal, round and reactive pupils present EOM: EOMs intact bilaterally Neck Neck: Yes full ROM Chest Chest palpation & inspection: normal inspection of the chest Resp Effort & Inspection: normal respiratory effort, able to speak in complete sentences, normal respiratory pattern, no audible wheezes and no cough Cardio Jugular venous distension: no JVD GI Inspection: Yes normal to inspection Back/Spine/Pelvis Other: On the e inspection exaggerated kyphotic curve of the thoracic spine. Severe leftward scoliotic curve of the lumbar spine. Tenderness on palpation over the right SI joint and right sciatic notch. No tenderness on palpation over spinous processes or paraspinal muscles bilaterally. Limited flexion and extension due to pain and significant anatomical distortion. Able to stand on bilateral lower extremities without difficulty able to stand on tiptoes without difficulty. SLR is negative bilaterally Nuno test is negative bilaterally. Neuro General: patient oriented x3, gait normal and No confusion Cranial nerves: Yes CN's II-XII intact bilaterally, Yes Equal, round and reactive pupils present, Yes Normal hearing present and Yes Ability to bilaterally elevate shoulders present Speech: No Abnormal speech present Gait exam (Neuro): Normal gait present Motor exam (neuro): 5/5 motor strength present throughout Sensory Exam: No Sensory deficit (Neuro) Extrem Other: Hip exam no gross deformity no every time no edema no ecchymosis no tenderness of palpation over greater trochanter. No tenderness of palpation of the SI joint range of motion is intact. Lateral and medial hip rotation is negative for pain increase in the groin. General: No pedal edema Psych Speech and movement: Normal speech and movement present Affect: normal affect Attitude: cooperative Thought process: Normal thought process present Thought content: Normal thought content present Insight: Good insight present (Psych) Judgement: Good judgement present (Psych) Assessment & Plan Assessment & Plan (1) Chronic pain syndrome: Code(s): G89.4 - Chronic pain syndrome (2) Lumbar scoliosis: Code(s): M41.9 - Scoliosis, unspecified (3) Disc degeneration, lumbar: Code(s): M51.36 - Other intervertebral disc degeneration, lumbar region (4) Vertebrogenic low back pain: Code(s): M54.51 - Vertebrogenic low back pain (5) Radiculopathy, lumbar region: Code(s): M54.16 - Radiculopathy, lumbar region (6) Spinal stenosis, lumbar: Code(s): M48.061 - Spinal stenosis, lumbar region without neurogenic claudication Plan The patient went for implantation of [employer] spinal cord stimulator. She reports very good results. She reports pain today 0/10. Staple removal was scheduled in 1 week. Wounds inspection and limitation of mobility see as above. After staple report muscles appointment will be as needed. The axial pain might persist. Attention also was attracted to endplate remodeling of this patient on the MRI dictation with significant marrow edema. This could be an indication to vertebra genic pain of this patient. Intercept procedure could still be tried for this patient. I recommended her still to bring me the image disc from prior MRI records [facility]. Coding Level of Care Code Est Pt Level 3 (52470) Diagnoses Chronic pain syndrome G89.4 Lumbar scoliosis M41.9 Disc degeneration, lumbar M51.36 Vertebrogenic low back pain M54.51 Radiculopathy, lumbar region M54.16 Spinal stenosis, lumbar M48.061
[2023-11-19 13:34] VITALS: BP 140/74; PULSE 62; RESP 12; O2SAT 98; BMI 18.8
== END 2023-11-19 14:06 | disposition home or self-care (01) ==
PROVIDERS: Visit Provider Anesthesiology
DX: G89.4 Chronic pain syndrome (principal); M41.9 Scoliosis, unspecified; M51.36 Other intervertebral disc degeneration, lumbar region; M54.51 Vertebrogenic low back pain; M54.16 Radiculopathy, lumbar region; M48.061 Spinal stenosis, lumbar region without neurogenic claudication
CPT/HCPCS: 99024

== ENCOUNTER → 2023-11-19 13:19 | Outpatient (BNVA) | payer OTHER, SELFPAY | PROVIDERS: Visit Provider Anesthesiology | DX: M41.9 Scoliosis, unspecified (principal); M51.36 Other intervertebral disc degeneration, lumbar region; M54.51 Vertebrogenic low back pain; M54.16 Radiculopathy, lumbar region; M48.061 Spinal stenosis, lumbar region without neurogenic claudication; G89.4 Chronic pain syndrome | CPT/HCPCS: 99212 ==

== ENCOUNTER 2023-11-26 13:17 | Outpatient (AMB) | payer OTHER, SELFPAY ==
--- NOTE | 2023-11-26 13:28 | MHC.OFFVIS ---
Intake Vital Signs 11/26/23 13:37 Height 5 ft Weight 96 lb 6 oz BMI 18.8 BP 140/72 H Blood Pressure Location Lt brachial Position Sitting Respiration 14 Pulse 70 Pulse Source Pulse Oximeter Pulse Oximetry (%) 98 Oxygen Delivery Method Room Air Intake Visit Reasons: S/p [employer] SCS implant (2nd post op) Intake Note: patient comes in for 2nd post-op appointment. Reports pain 0/10. Allergies Penicillins Adverse Reaction (Mild, Verified 11/26/23 13:36) Hives pine nuts Allergy (Mild, Uncoded 06/03/23 15:48) Unconscious HPI HPI Comments History of Present Illness Details Capri is back in my office status post implant of [employer] spinal cord stimulator. The electrodes this time were positioned appropriately. She reports minimal pain from postoperative wounds. There is no redness, no pathological discharge, no swelling, no tenderness on palpation. The incision sites were prepped with ChloraPrep and Tegaderm dressings were applied at the sides with bacitracin ointment. Some of the christian were removed today but the wounds were peer not healing very well in some gaps appeared in between the loops of the wounds. The gap some minimal I decided to keep the christian on on both wounds. Next time she will come and I will remove the rest of the christian hopefully the wounds will look better at that time bacitracin ointment was applied. She will visit me in 1 week. Patient again reports pain 0/10 today. She reports excellent mobility, excellent activities of daily living good social interactions. The activity limitations were explained to the patient. She was explained about heavy lifting , torso movements, wearing abdominal binder. Limitations on showers was explained to the patient as well. Prior: complains on pain in the back with radiation into the right lower extremity intermittently to the right thigh in the groin and intermittently all the way down to the foot with corresponding sensation of numbness and feeling of burning and stabbing sensation. She reports that this problem started 6-7 years ago. She reports her pain today is 5 to 6/10. She reports that sometimes the pain is 9 to 10/10. Topical medications and oral medications make her pain minimally better. In the past she was under care of [facility] and she was evaluated by neurosurgeon Dr. Coyle. Dr. Coyle did not find any reason to operate on her because of her severe stenosis at L3-L4 area. She denies pelvic organ dysfunction, she denies incontinence with urine and/or stool, she denies urinary retention. She was under care of Dr. Mitchell Smith from [facility], she was subject of multiple sessions of physical therapy , she had chiropractic manipulations of multiple sessions and she had massage therapy with only temporary effect on her pain. Over the years she received multiple epidural steroid injections and L3 L4 on the right at [facility]. Initially she reported 6 or 7 months improvement on epidural steroid injections however with years the epidural steroid injection fade in effectiveness. She went back to Dr. Coyle and she was recommended to have facet joint injections, medial branch blocks and sacroiliac joint injections. Those injections were performed by [facility] and unfortunately those procedures were not effective for pain control. She tried NSAIDs to treat her pain and originally they were helping her but with years she escalated the doses of NSAIDs to 800 mg several times a day. She started to develop widespread bruises on her arms and forearms because of high doses of the NSAIDs and she had to stop the medication. [facility] Medical History Chronic pain syndrome Hypoglycemia Disc degeneration, lumbar Lumbar scoliosis Anxiety Asthma Back pain Arthritis Elevated cholesterol HTN (hypertension) Thyroid disease GERD (gastroesophageal reflux disease) Surgical History Hx of ovarian cystectomy Hx of hysterectomy Hx of appendectomy Hx of tonsillectomy Social History Patient Tobacco Use Status: Never used Tobacco Second Hand Smoke Exposure: No Review of Systems Const All systems reviewed & are unremarkable except as noted in HPI and below ENT Reports Normal hearing present Neuro Reports Normal hearing present, Denies Abnormal speech present, Denies confusion and Denies Sensory deficit (Neuro) Psych Denies confusion Physical Exam Vital Signs: Last Vital Signs Pulse 70 11/26/23 13:37 Resp 14 11/26/23 13:37 BP 140/72 H 11/26/23 13:37 Pulse Ox 98 11/26/23 13:37 Oxygen Delivery Method Room Air 11/26/23 13:37 BMI result Body Mass Index 18.8 Const General: no acute distress; No confusion Orientation/consciousness: patient oriented x3 and No confusion Eyes General: appearance normal, both eyes and all related structures Pupils: Equal, round and reactive pupils present EOM: EOMs intact bilaterally Neck Neck: Yes full ROM Chest Chest palpation & inspection: normal inspection of the chest Resp Effort & Inspection: normal respiratory effort, able to speak in complete sentences, normal respiratory pattern, no audible wheezes and no cough Cardio Jugular venous distension: no JVD GI Inspection: Yes normal to inspection Back/Spine/Pelvis Other: On the e inspection exaggerated kyphotic curve of the thoracic spine. Severe leftward scoliotic curve of the lumbar spine. Tenderness on palpation over the right SI joint and right sciatic notch. No tenderness on palpation over spinous processes or paraspinal muscles bilaterally. Limited flexion and extension due to pain and significant anatomical distortion. Able to stand on bilateral lower extremities without difficulty able to stand on tiptoes without difficulty. SLR is negative bilaterally Nuno test is negative bilaterally. Neuro General: patient oriented x3, gait normal and No confusion Cranial nerves: Yes CN's II-XII intact bilaterally, Yes Equal, round and reactive pupils present, Yes Normal hearing present and Yes Ability to bilaterally elevate shoulders present Speech: No Abnormal speech present Gait exam (Neuro): Normal gait present Motor exam (neuro): 5/5 motor strength present throughout Sensory Exam: No Sensory deficit (Neuro) Extrem Other: Hip exam no gross deformity no every time no edema no ecchymosis no tenderness of palpation over greater trochanter. No tenderness of palpation of the SI joint range of motion is intact. Lateral and medial hip rotation is negative for pain increase in the groin. General: No pedal edema Psych Speech and movement: Normal speech and movement present Affect: normal affect Attitude: cooperative Thought process: Normal thought process present Thought content: Normal thought content present Insight: Good insight present (Psych) Judgement: Good judgement present (Psych) Assessment & Plan Assessment & Plan (1) Chronic pain syndrome: Code(s): G89.4 - Chronic pain syndrome (2) Lumbar scoliosis: Code(s): M41.9 - Scoliosis, unspecified (3) Disc degeneration, lumbar: Code(s): M51.36 - Other intervertebral disc degeneration, lumbar region (4) Vertebrogenic low back pain: Code(s): M54.51 - Vertebrogenic low back pain (5) Radiculopathy, lumbar region: Code(s): M54.16 - Radiculopathy, lumbar region (6) Spinal stenosis, lumbar: Code(s): M48.061 - Spinal stenosis, lumbar region without neurogenic claudication Plan The patient went for implantation of [employer] spinal cord stimulator. She reports very good results. She reports pain today 0/10. The christian were not removed today. Some minimal gaps were noted between the lips of the wounds. She has a slow healer. I will invite her for staple removal next time here. Of note her significant other fell on the ground and lost his continence after I left the room after removal of the christian. I ran back and this gentleman appeared to be suffering from vasovagal condition. We called an ambulance however this person did not want to go to emergency room for evaluation. Coding Level of Care Code Est Pt Level 3 (56715) Diagnoses Chronic pain syndrome G89.4 Lumbar scoliosis M41.9 Disc degeneration, lumbar M51.36 Vertebrogenic low back pain M54.51 Radiculopathy, lumbar region M54.16 Spinal stenosis, lumbar M48.061
[2023-11-26 13:37] VITALS: BP 140/72; PULSE 70; RESP 14; O2SAT 98; BMI 18.8
== END 2023-11-26 14:21 | disposition home or self-care (01) ==
PROVIDERS: Visit Provider Anesthesiology
DX: G89.4 Chronic pain syndrome (principal); M41.9 Scoliosis, unspecified; M51.36 Other intervertebral disc degeneration, lumbar region; M54.51 Vertebrogenic low back pain; M54.16 Radiculopathy, lumbar region; M48.061 Spinal stenosis, lumbar region without neurogenic claudication
CPT/HCPCS: 99213

== ENCOUNTER → 2023-11-26 13:17 | Outpatient (BNVA) | payer OTHER, SELFPAY | PROVIDERS: Visit Provider Anesthesiology | DX: G89.4 Chronic pain syndrome (principal); M48.061 Spinal stenosis, lumbar region without neurogenic claudication; M54.16 Radiculopathy, lumbar region; M51.36 Other intervertebral disc degeneration, lumbar region; M41.9 Scoliosis, unspecified | CPT/HCPCS: 99212 ==

== ENCOUNTER 2023-12-03 14:04 | Outpatient (AMB) | payer OTHER, SELFPAY ==
--- NOTE | 2023-12-03 14:27 | MHC.OFFVIS ---
Vital Signs 12/03/23 14:57 Height 5 ft Weight 96 lb 6 oz BMI 18.8 BP 136/72 Blood Pressure Location Lt brachial Position Sitting Respiration 14 Pulse 63 Pulse Source Pulse Oximeter Pulse Oximetry (%) 97 Oxygen Delivery Method Room Air Intake Visit Reasons: 1 WEEK FOLLOW UP Intake Note: patient comes in for follow-up. Reports pain 7/10. Allergies Penicillins Adverse Reaction (Mild, Verified 11/26/23 13:36) Hives pine nuts Allergy (Mild, Uncoded 06/03/23 15:48) Unconscious HPI Comments Details: Capri is back in my office status post implant of [employer] spinal cord stimulator. The electrodes this time were positioned appropriately. She reports minimal pain from postoperative wounds. There is no redness, no pathological discharge, no swelling, no tenderness on palpation. The incision sites were prepped with ChloraPrep and Tegaderm dressings were applied at the sides with bacitracin ointment. the rest of the christian were removed today the midline incision shows the gap between the two lips of the wound 2 mm wide, the patient admits that she was a poor healer all of my life . the gap seemingly covering with epithelium. The wound was washed with anticeptic and bacitracin ointment dressing was applied. The patient is invited to come for the wound inspection in one week Patient again reports pain 0/10 today. She reports excellent mobility, excellent activities of daily living good social interactions. The activity limitations were explained to the patient. She was explained about heavy lifting , torso movements, wearing abdominal binder. Limitations on showers was explained to the patient as well. Prior: complains on pain in the back with radiation into the right lower extremity intermittently to the right thigh in the groin and intermittently all the way down to the foot with corresponding sensation of numbness and feeling of burning and stabbing sensation. She reports that this problem started 6-7 years ago. She reports her pain today is 5 to 6/10. She reports that sometimes the pain is 9 to 10/10. Topical medications and oral medications make her pain minimally better. In the past she was under care of [facility] and she was evaluated by neurosurgeon Dr. Coyle. Dr. Coyle did not find any reason to operate on her because of her severe stenosis at L3-L4 area. She denies pelvic organ dysfunction, she denies incontinence with urine and/or stool, she denies urinary retention. She was under care of Dr. Mitchell Smith from [facility] [employer] [facility], she was subject of multiple sessions of physical therapy , she had chiropractic manipulations of multiple sessions and she had massage therapy with only temporary effect on her pain. Over the years she received multiple epidural steroid injections and L3 L4 on the right at [facility]. Initially she reported 6 or 7 months improvement on epidural steroid injections however with years the epidural steroid injection fade in effectiveness. She went back to Dr. Coyle and she was recommended to have facet joint injections, medial branch blocks and sacroiliac joint injections. Those injections were performed by [facility] and unfortunately those procedures were not effective for pain control. She tried NSAIDs to treat her pain and originally they were helping her but with years she escalated the doses of NSAIDs to 800 mg several times a day. She started to develop widespread bruises on her arms and forearms because of high doses of the NSAIDs and she had to stop the medication. [facility] Medical History Chronic pain syndrome Hypoglycemia Disc degeneration, lumbar Lumbar scoliosis Anxiety Asthma Back pain Arthritis Elevated cholesterol HTN (hypertension) Thyroid disease GERD (gastroesophageal reflux disease) Surgical History Hx of ovarian cystectomy Hx of hysterectomy Hx of appendectomy Hx of tonsillectomy Social History Patient Tobacco Use Status: Never used Tobacco Second Hand Smoke Exposure: No Review of Systems Const All systems reviewed & are unremarkable except as noted in HPI and below ENT Reports Normal hearing present Neuro Reports Normal hearing present, Denies Abnormal speech present, Denies confusion and Denies Sensory deficit (Neuro) Psych Denies confusion Physical Exam Vital Signs: Last Vital Signs Pulse 63 12/03/23 14:57 Resp 14 12/03/23 14:57 BP 136/72 12/03/23 14:57 Pulse Ox 97 12/03/23 14:57 Oxygen Delivery Method Room Air 12/03/23 14:57 BMI result Body Mass Index 18.8 Const General: no acute distress; No confusion Orientation/consciousness: patient oriented x3 and No confusion Eyes General: appearance normal, both eyes and all related structures Pupils: Equal, round and reactive pupils present EOM: EOMs intact bilaterally Neck Neck: Yes full ROM Chest Chest palpation & inspection: normal inspection of the chest Resp Effort & Inspection: normal respiratory effort, able to speak in complete sentences, normal respiratory pattern, no audible wheezes and no cough Cardio Jugular venous distension: no JVD GI Inspection: Yes normal to inspection Back/Spine/Pelvis Other: On the e inspection exaggerated kyphotic curve of the thoracic spine. Severe leftward scoliotic curve of the lumbar spine. Tenderness on palpation over the right SI joint and right sciatic notch. No tenderness on palpation over spinous processes or paraspinal muscles bilaterally. Limited flexion and extension due to pain and significant anatomical distortion. Able to stand on bilateral lower extremities without difficulty able to stand on tiptoes without difficulty. SLR is negative bilaterally Nuno test is negative bilaterally. Neuro General: patient oriented x3, gait normal and No confusion Cranial nerves: Yes CN's II-XII intact bilaterally, Yes Equal, round and reactive pupils present, Yes Normal hearing present and Yes Ability to bilaterally elevate shoulders present Speech: No Abnormal speech present Gait exam (Neuro): Normal gait present Motor exam (neuro): 5/5 motor strength present throughout Sensory Exam: No Sensory deficit (Neuro) Extrem Other: Hip exam no gross deformity no every time no edema no ecchymosis no tenderness of palpation over greater trochanter. No tenderness of palpation of the SI joint range of motion is intact. Lateral and medial hip rotation is negative for pain increase in the groin. General: No pedal edema Psych Speech and movement: Normal speech and movement present Affect: normal affect Attitude: cooperative Thought process: Normal thought process present Thought content: Normal thought content present Insight: Good insight present (Psych) Judgement: Good judgement present (Psych) Assessment & Plan Assessment & Plan (1) Chronic pain syndrome: Code(s): G89.4 - Chronic pain syndrome Category: Medical (2) Lumbar scoliosis: Code(s): M41.9 - Scoliosis, unspecified Category: Medical (3) Disc degeneration, lumbar: Code(s): M51.36 - Other intervertebral disc degeneration, lumbar region Category: Medical (4) Vertebrogenic low back pain: Code(s): M54.51 - Vertebrogenic low back pain Category: Medical (5) Radiculopathy, lumbar region: Code(s): M54.16 - Radiculopathy, lumbar region Category: Medical (6) Spinal stenosis, lumbar: Code(s): M48.061 - Spinal stenosis, lumbar region without neurogenic claudication Category: Medical Plan The patient went for implantation of [employer] spinal cord stimulator. She reports very good results. She reports pain today 0/10. The christian wer removed today. Some minimal gaps are still persisting between the lips of the wounds. She is selfaddmittedly a slow healer. I will invite her for wounds inspection in one week. Mobility limitations explained to the patient, personal hygiene questions were answered.
[2023-12-03 14:57] VITALS: BP 136/72; PULSE 63; RESP 14; O2SAT 97; BMI 18.8
== END 2023-12-03 15:07 | disposition home or self-care (01) ==
PROVIDERS: Visit Provider Anesthesiology
DX: G89.4 Chronic pain syndrome (principal); M41.9 Scoliosis, unspecified; M51.36 Other intervertebral disc degeneration, lumbar region; M54.51 Vertebrogenic low back pain; M54.16 Radiculopathy, lumbar region; M48.061 Spinal stenosis, lumbar region without neurogenic claudication
CPT/HCPCS: 99213

== ENCOUNTER → 2023-12-03 14:04 | Outpatient (BNVA) | payer OTHER, SELFPAY | PROVIDERS: Visit Provider Anesthesiology | DX: G89.4 Chronic pain syndrome (principal); M54.51 Vertebrogenic low back pain; M51.36 Other intervertebral disc degeneration, lumbar region; M54.16 Radiculopathy, lumbar region; M41.56 Other secondary scoliosis, lumbar region; M48.061 Spinal stenosis, lumbar region without neurogenic claudication; Z96.82 Presence of neurostimulator | CPT/HCPCS: 99212 ==

== ENCOUNTER 2023-12-10 14:51 | Outpatient (AMB) | payer OTHER, SELFPAY ==
--- NOTE | 2023-12-10 14:53 | A.OFFVIS_ITS ---
Vital Signs 12/10/23 14:54 Height 5 ft Weight 96 lb 6 oz BMI 18.8 BP 120/67 Blood Pressure Location Rt brachial Position Sitting Pulse 88 Pulse Source Pulse Oximeter Pulse Oximetry (%) 98 Oxygen Delivery Method Room Air Intake Visit Reasons: 1 Week Follow Up Allergies Penicillins Adverse Reaction (Mild, Verified 12/10/23 15:01) Hives pine nuts Allergy (Mild, Uncoded 12/10/23 15:01) Unconscious HPI Comments Details: Capri is back in my office status post implant of [employer] spinal cord stimulator. The electrodes this time were positioned appropriately. She reports minimal pain from postoperative wounds. There is no redness, no pathological discharge, no swelling, no tenderness on palpation. The were 2 sutures in both incisions protruding through the skin and being exposed under the dressing. Sterile prep was used with ChloraPrep and Betadine. Sterile needle duffy was used to grab those sutures and remove them without difficulty. Patient experienced minor discomfort. Against the bacitracin ointment were applied. Patient was instructed to be careful with her personal hygiene. Patient will be visiting me in 2 weeks and I will evaluate the sites. I informed her that if dressing will start to fall off to reinforce it with tape. I also told her that she can not come to the office for dressing change between now and 14 days after. the patient admits that she was a poor healer all of my life . the gap seemingly covering with epithelium. The wound was washed with anticeptic and bacitracin ointment dressing was applied. The patient is invited to come for the wound inspection in one week Patient again reports pain 0/10 today. She reports excellent mobility, excellent activities of daily living good social interactions. The activity limitations were explained to the patient. She was explained about heavy lifting , torso movements, wearing abdominal binder. Limitations on showers was explained to the patient as well. Prior: complains on pain in the back with radiation into the right lower extremity intermittently to the right thigh in the groin and intermittently all the way down to the foot with corresponding sensation of numbness and feeling of burning and stabbing sensation. She reports that this problem started 6-7 years ago. She reports her pain today is 5 to 6/10. She reports that sometimes the pain is 9 to 10/10. Topical medications and oral medications make her pain minimally better. In the past she was under care of [facility] and she was evaluated by neurosurgeon Dr. Coyle. Dr. Coyle did not find any reason to operate on her because of her severe stenosis at L3-L4 area. She denies pelvic organ dysfunction, she denies incontinence with urine and/or stool, she denies urinary retention. She was under care of Dr. Mitchell Smith from [facility], she was subject of multiple sessions of physical therapy , she had chiropractic manipulations of multiple sessions and she had massage therapy with only temporary effect on her pain. Over the years she received multiple epidural steroid injections and L3 L4 on the right at [facility]. Initially she reported 6 or 7 months improvement on epidural steroid injections however with years the epidural steroid injection fade in effectiveness. She went back to Dr. Coyle and she was recommended to have facet joint injections, medial branch blocks and sacroiliac joint injections. Those inj ections were performed by [facility] and unfortunately those procedures were not effective for pain control. She tried NSAIDs to treat her pain and originally they were helping her but with years she escalated the doses of NSAIDs to 800 mg several times a day. She started to develop widespread bruises on her arms and forearms because of high doses of the NSAIDs and she had to stop the medication. [facility] Medical History Chronic pain syndrome Hypoglycemia Disc degeneration, lumbar Lumbar scoliosis Anxiety Asthma Back pain Arthritis Elevated cholesterol HTN (hypertension) Thyroid disease GERD (gastroesophageal reflux disease) Surgical History Hx of ovarian cystectomy Hx of hysterectomy Hx of appendectomy Hx of tonsillectomy Social History Patient Tobacco Use Status: Never used Tobacco Second Hand Smoke Exposure: No Review of Systems Const All systems reviewed & are unremarkable except as noted in HPI and below ENT Reports Normal hearing present Neuro Reports Normal hearing present, Denies Abnormal speech present, Denies confusion and Denies Sensory deficit (Neuro) Psych Denies confusion Physical Exam Vital Signs: Last Vital Signs Pulse 88 12/10/23 14:54 BP 120/67 12/10/23 14:54 Pulse Ox 98 12/10/23 14:54 Oxygen Delivery Method Room Air 12/10/23 14:54 BMI result Body Mass Index 18.8 Const General: no acute distress; No confusion Orientation/consciousness: patient oriented x3 and No confusion Eyes General: appearance normal, both eyes and all related structures Pupils: Equal, round and reactive pupils present EOM: EOMs intact bilaterally Neck Neck: Yes full ROM Chest Chest palpation & inspection: normal inspection of the chest Resp Effort & Inspection: normal respiratory effort, able to speak in complete sentences, normal respiratory pattern, no audible wheezes and no cough Cardio Jugular venous distension: no JVD GI Inspection: Yes normal to inspection Back/Spine/Pelvis Other: On the e inspection exaggerated kyphotic curve of the thoracic spine. Severe leftward scoliotic curve of the lumbar spine. Tenderness on palpation over the right SI joint and right sciatic notch. No tenderness on palpation over spinous processes or paraspinal muscles bilaterally. Limited flexion and extension due to pain and significant anatomical distortion. Able to stand on bilateral lower extremities without difficulty able to stand on tiptoes without difficulty. SLR is negative bilaterally Nuno test is negative bilaterally. Neuro General: patient oriented x3, gait normal and No confusion Cranial nerves: Yes CN's II-XII intact bilaterally, Yes Equal, round and reactive pupils present, Yes Normal hearing present and Yes Ability to bilaterally elevate shoulders present Speech: No Abnormal speech present Gait exam (Neuro): Normal gait present Motor exam (neuro): 5/5 motor strength present throughout Sensory Exam: No Sensory deficit (Neuro) Extrem Other: Hip exam no gross deformity no every time no edema no ecchymosis no tenderness of palpation over greater trochanter. No tenderness of palpation of the SI joint range of motion is intact. Lateral and medial hip rotation is negative for pain increase in the groin. General: No pedal edema Psych Speech and movement: Normal speech and movement present Affect: normal affect Attitude: cooperative Thought process: Normal thought process present Thought content: Normal thought content present Insight: Good insight present (Psych) Judgement: Good judgement present (Psych) Assessment & Plan Assessment & Plan (1) Chronic pain syndrome: Code(s): G89.4 - Chronic pain syndrome Category: Medical (2) Lumbar scoliosis: Code(s): M41.9 - Scoliosis, unspecified Category: Medical (3) Disc degeneration, lumbar: Code(s): M51.36 - Other intervertebral disc degeneration, lumbar region Category: Medical (4) Vertebrogenic low back pain: Code(s): M54.51 - Vertebrogenic low back pain Category: Medical (5) Radiculopathy, lumbar region: Code(s): M54.16 - Radiculopathy, lumbar region Category: Medical (6) Spinal stenosis, lumbar: Code(s): M48.061 - Spinal stenosis, lumbar region without neurogenic claudication Category: Medical Plan The patient went for implantation of [employer] spinal cord stimulator. She reports very good results. She reports pain today 0/10. 2. protruding s utures were removed today. She is selfaddmittedly a slow healer. I will invite her for wounds inspection in 2. weeks. Mobility limitations explained to the patient, personal hygiene limitations were explained to the patient. Need for abdominal binder was explained to the patient. Patient expressed the understanding. Coding Level of Care Code Est Pt Level 4 (77206) Diagnoses Chronic pain syndrome G89.4 Lumbar scoliosis M41.9 Disc degeneration, lumbar M51.36 Vertebrogenic low back pain M54.51 Radiculopathy, lumbar region M54.16 Spinal stenosis, lumbar M48.061
[2023-12-10 14:54] VITALS: BP 120/67; PULSE 88; O2SAT 98; BMI 18.8
== END 2023-12-10 15:24 | disposition home or self-care (01) ==
PROVIDERS: Visit Provider Anesthesiology
DX: G89.4 Chronic pain syndrome (principal); M41.9 Scoliosis, unspecified; M51.36 Other intervertebral disc degeneration, lumbar region; M54.51 Vertebrogenic low back pain; M54.16 Radiculopathy, lumbar region; M48.061 Spinal stenosis, lumbar region without neurogenic claudication
CPT/HCPCS: 99214

== ENCOUNTER → 2023-12-10 14:51 | Outpatient (BNVA) | payer OTHER, SELFPAY | PROVIDERS: Visit Provider Anesthesiology | DX: G89.4 Chronic pain syndrome (principal); M41.9 Scoliosis, unspecified; M51.36 Other intervertebral disc degeneration, lumbar region; M54.51 Vertebrogenic low back pain; M54.16 Radiculopathy, lumbar region; M48.061 Spinal stenosis, lumbar region without neurogenic claudication | CPT/HCPCS: 99212 ==

== ENCOUNTER 2023-12-16 08:48 | Outpatient (AMB) | payer OTHER, SELFPAY ==
--- NOTE | 2023-12-16 08:55 | A.OFFVIS_ITS ---
Vital Signs 12/16/23 09:03 Height 5 ft Weight 96 lb 6 oz BMI 18.8 BP 146/76 H Blood Pressure Location Lt brachial Position Sitting Respiration 14 Pulse 71 Pulse Source Pulse Oximeter Pulse Oximetry (%) 98 Oxygen Delivery Method Room Air Intake Visit Reasons: burning sensation in her back/shoulder Intake Note: Patient states she bend forward yesterday and feels a burning sensation in her back. Reports pain 2/10. Allergies Penicillins Adverse Reaction (Mild, Verified 12/16/23 09:03) Hives pine nuts Allergy (Mild, Uncoded 12/10/23 15:01) Unconscious HPI Comments Details: Capri is back in my office status post implant of [employer] spinal cord stimulator. She reported today that she had minimal pain and decided to attend her garden. She was performing some inappropriate movements while flexing herself forward which was clearly a restricted for her for 8 weeks after the procedure. She started to feel pain in the projection of the central lumbar vertebra. I decided to send this patient for the x-ray of the thoracic spine. The x-ray of the thoracic spine was performed today. The epidural leads are still positioned in the posterior epidural space. If anything of the shift occurred the might have moved slightly forward into the epidural space. Now the tips of the both of the electrodes positioned at the tip of the T7 vertebra. I recommended her to continue to wear abdominal binder, I recommended her to avoid such strenuous activities and movements as the 1 she she described to me today. I examined her wounds in the back. She is very thin and skinny and the electrodes are easily to be palpated under the skin. However the wounds are healed very well. The minimal discoloration however there is no redness, there is no swelling, there is no pathological discharge, there is no tenderness on palpation. Prior: complains on pain in the back with radiation into the right lower extremity intermittently to the right thigh in the groin and intermittently all the way down to the foot with corresponding sensation of numbness and feeling of burning and stabbing sensation. She reports that this problem started 6-7 years ago. She reports her pain today is 5 to 6/10. She reports that sometimes the pain is 9 to 10/10. Topical medications and oral medications make her pain minimally better. In the past she was under care of [facility] and she was evaluated by neurosurgeon Dr. Coyle. Dr. Coyle did not find any reason to operate on her because of her severe stenosis at L3-L4 area. She denies pelvic organ dysfunction, she denies incontinence with urine and/or stool, she denies urinary retention. She was under care of Dr. Mitchell Smith from [facility], she was subject of multiple sessions of physical therapy , she had chiropractic manipulations of multiple sessions and she had massage therapy with only temporary effect on her pain. Over the years she received multiple epidural steroid injections and L3 L4 on the right at [facility]. Initially she reported 6 or 7 months improvement on epidural steroid injections however with years the epidural steroid injection fade in effectiveness. She went back to Dr. Coyle and she was recommended to have facet joint injections, medial branch blocks and sacroiliac joint injections. Those injections were performed by [facility] and unfortunately those procedures were not effective for pain control. She tried NSAIDs to treat her pain and originally they were helping her but with years she escalated the doses of NSAIDs to 800 mg several times a day. She started to develop widespread bruises on her arms and forearms because of high doses of the NSAIDs and she had to stop the medication. [facility] Medical History Chronic pain syndrome Hypoglycemia Disc degeneration, lumbar Lumbar scoliosis Anxiety Asthma Back pain Arthritis Elevated cholesterol HTN (hypertension) Thyroid disease GERD (gastroesophageal reflux disease) Surgical History Hx of ovarian cystectomy Hx of hysterectomy Hx of appendectomy Hx of tonsillectomy Social History Patient Tobacco Use Status: Never used Tobacco Second Hand Smoke Exposure: No Review of Systems Const All systems reviewed & are unremarkable except as noted in HPI and below ENT Reports Normal hearing present Neuro Reports Normal hearing present, Denies Abnormal speech present, Denies confusion and Denies Sensory deficit (Neuro) Psych Denies confusion Physical Exam Vital Signs: Last Vital Signs Pulse 71 12/16/23 09:03 Resp 14 12/16/23 09:03 BP 146/76 H 12/16/23 09:03 Pulse Ox 98 12/16/23 09:03 Oxygen Delivery Method Room Air 12/16/23 09:03 BMI result Body Mass Index 18.8 Const General: no acute distress; No confusion Orientation/consciousness: patient oriented x3 and No confusion Eyes General: appearance normal, both eyes and all related structures Pupils: Equal, round and reactive pupils present EOM: EOMs intact bilaterally Neck Neck: Yes full ROM Chest Chest palpation & inspection: normal inspection of the chest Resp Effort & Inspection: normal respiratory effort, able to speak in complete sentences, normal respiratory pattern, no audible wheezes and no cough Cardio Jugular venous distension: no JVD GI Inspection: Yes normal to inspection Back/Spine/Pelvis Other: On the e inspection exaggerated kyphotic curve of the thoracic spine. Severe leftward scoliotic curve of the lumbar spine. Tenderness on palpation over the right SI joint and right sciatic notch. No tenderness on palpation over spinous processes or paraspinal muscles bilaterally. Limited flexion and extension due to pain and significant anatomical distortion. Able to stand on bilateral lower extremities without difficulty able to stand on tiptoes without difficulty. SLR is negative bilaterally Nuno test is negative bilaterally. Neuro General: patient oriented x3, gait normal and No confusion Cranial nerves: Yes CN's II-XII intact bilaterally, Yes Equal, round and reactive pupils present, Yes Normal hearing present and Yes Ability to bilaterally elevate shoulders present Speech: No Abnormal speech present Gait exam (Neuro): Normal gait present Motor exam (neuro): 5/5 motor strength present throughout Sensory Exam: No Sensory deficit (Neuro) Extrem Other: Hip exam no gross deformity no every time no edema no ecchymosis no tenderness of palpation over greater trochanter. No tenderness of palpation of the SI joint range of motion is intact. Lateral and medial hip rotation is negative for pain increase in the groin. General: No pedal edema Psych Speech and movement: Normal speech and movement present Affect: normal affect Attitude: cooperative Thought process: Normal thought process present Thought content: Normal thought content present Insight: Good insight present (Psych) Judgement: Good judgement present (Psych) Assessment & Plan Assessment & Plan (1) Spinal cord stimulator status: Code(s): Z96.89 - Presence of other specified functional implants Category: Medical (2) Chronic pain syndrome: Code(s): G89.4 - Chronic pain syndrome Category: Medical (3) Lumbar scoliosis: Code(s): M41.9 - Scoliosis, unspecified Category: Medical (4) Disc degeneration, lumbar: Code(s): M51.36 - Other intervertebral disc degeneration, lumbar region Category: Medical (5) Vertebrogenic low back pain: Code(s): M54.51 - Vertebrogenic low back pain Category: Medical (6) Radiculopathy, lumbar region: Code(s): M54.16 - Radiculopathy, lumbar region Category: Medical (7) Spinal stenosis, lumbar: Code(s): M48.061 - Spinal stenosis, lumbar region without neurogenic claudication Category: Medical Plan Discussion is as above. The patient was sent for x-ray. It does not demonstrate significant shift of the spinal cord stimulator leads. She was strictly forbidden to perform the moves as she describes today. She needs another 3-4 weeks before she can expand gently and carefully her physical activity. She needs to continue to wear abdominal binder. Coding Level of Care Code Est Pt Level 3 (85524) Diagnoses Spinal cord stimulator status Z96.89 Chronic pain syndrome G89.4 Lumbar scoliosis M41.9 Disc degeneration, lumbar M51.36 Vertebrogenic low back pain M54.51 Radiculopathy, lumbar region M54.16 Spinal stenosis, lumbar M48.061
[2023-12-16 09:03] VITALS: BP 146/76; PULSE 71; RESP 14; O2SAT 98; BMI 18.8
== END 2023-12-16 09:20 | disposition home or self-care (01) ==
PROVIDERS: Visit Provider Anesthesiology
DX: Z96.89 Presence of other specified functional implants (principal); G89.4 Chronic pain syndrome; M41.9 Scoliosis, unspecified; M51.36 Other intervertebral disc degeneration, lumbar region; M54.51 Vertebrogenic low back pain; M54.16 Radiculopathy, lumbar region; M48.061 Spinal stenosis, lumbar region without neurogenic claudication
CPT/HCPCS: 99213

== ENCOUNTER 2023-12-16 08:48 | Outpatient (REF) | payer OTHER, SELFPAY ==
--- NOTE | ~2023-12-16 | XR_ITS ---
EXAMINATION: XR THORACOLUMBAR SPINE CLINICAL INFORMATION: Patient states spinal stimulator implanted 4 weeks and 2 days ago, presence of other specified functional implants. COMPARISON: 11/13/2023 fluoroscopic in OR images. TECHNIQUE: 2 views of the thoracic spine. FINDINGS: Severe S-shaped thoracolumbar scoliosis with multilevel degenerative changes. Asymmetric elevation of the partially imaged left lung base with retrocardiac air fluid levels, possibly related to hiatal hernia. Dedicated views of the chest and possibly CT scan of the chest recommended for further evaluation as this area is poorly imaged on these dedicated thoracic spine radiographs. Loss of height of multiple lower thoracic and possibly upper lumbar vertebral bodies are difficult to evaluate due to severe scoliosis at this level. Posterior device characteristic of electrical stimulator with leads overlying the level of the posterior epidural space region at T6-T9 levels. XR/XR thoracic spine 2V IMPRESSION: 1. Severe S-shaped thoracolumbar scoliosis with multilevel degenerative changes. 2. Asymmetric elevation of the partially imaged left lung base with retrocardiac air fluid levels, possibly related to hiatal hernia. Dedicated views of the chest and possibly CT scan of the chest recommended for further evaluation as this area is poorly imaged on these dedicated thoracic spine radiographs. 3. Loss of height of multiple lower thoracic and possibly upper lumbar vertebral bodies are difficult to evaluate due to severe scoliosis at this level. 4. Posterior device characteristic of electrical stimulator with leads overlying the level of the posterior epidural space region at T6-T9 levels.
== END 2023-12-16 08:49 | disposition home or self-care (01) ==
LOC: HO.XRAY 08:48
PROVIDERS: PCP Internal Medicine; Visit Provider Anesthesiology
DX: Z96.89 Presence of other specified functional implants (principal); M41.9 Scoliosis, unspecified
CPT/HCPCS: 72070; 99212

== ENCOUNTER 2023-12-24 13:48 | Outpatient (AMB) | payer OTHER, SELFPAY ==
--- NOTE | 2023-12-24 13:53 | MHC.OFFVIS ---
Vital Signs 12/24/23 14:04 Height 5 ft Weight 96 lb 6 oz BMI 18.8 BP 126/66 Blood Pressure Location Lt brachial Position Sitting Respiration 14 Pulse 64 Pulse Source Pulse Oximeter Pulse Oximetry (%) 99 Oxygen Delivery Method Room Air Intake Visit Reasons: 2 WEEK SUTURE FOLLOW UP Intake Note: Patient comes in for 2 weeks follow up. Reports pain 810. Allergies Penicillins Adverse Reaction (Mild, Verified 12/24/23 14:04) Hives pine nuts Allergy (Mild, Uncoded 12/10/23 15:01) Unconscious HPI Comments Details: Capri is back in my office status post implant of [employer] spinal cord stimulator. Today she reports yet another changes she experienced in the past few days which could possibly compromise her spinal cord stimulator. Apparently she purchased some rotten eggs and she had food poisoning. She was reaching and vomiting all day yesterday. Increase of the intra-abdominal pressure with vomiting can result in dislodgement of the spinal cord stimulator leads. However she reports appropriate stimulation today. On the examination today her wounds are in good condition although minimal redness persists in the projection of the midline incision on the back. She continues to wear abdominal binder. Last time she reported that she had minimal pain and decided to attend her garden. She was performing some inappropriate movements while flexing herself forward which was clearly a restricted for her for 8 weeks after the procedure. She started to feel pain in the projection of the central lumbar vertebra. I decided to send this patient for the x-ray of the thoracic spine. The x-ray of the thoracic spine was performed The epidural leads are still positioned in the posterior epidural space. If anything of the shift occurred the might have moved slightly forward into the epidural space. Now the tips of the both of the electrodes positioned at the tip of the T7 vertebra. I recommended her to continue to wear abdominal binder I recommend her to avoid all this compromising conditions and movements which could potentially dislodge the electrodes and then her pain will come back. Patient expressed understanding. No new appointment is necessary unless patient reports any changes in her wounds or if patient will get less significant pain relief from spinal cord stimulator. Prior: complains on pain in the back with radiation into the right lower extremity intermittently to the right thigh in the groin and intermittently all the way down to the foot with corresponding sensation of numbness and feeling of burning and stabbing sensation. She reports that this problem started 6-7 years ago. She reports her pain today is 5 to 6/10. She reports that sometimes the pain is 9 to 10/10. Topical medications and oral medications make her pain minimally better. In the past she was under care of [facility] and she was evaluated by neurosurgeon Dr. Coyle. Dr. Coyle did not find any reason to operate on her because of her severe stenosis at L3-L4 area. She denies pelvic organ dysfunction, she denies incontinence with urine and/or stool, she denies urinary retention. She was under care of Dr. Mitchell Smith from [facility], she was subject of multiple sessions of physical therapy , she had chiropractic manipulations of multiple sessions and she had massage therapy with only temporary effect on her pain. Over the years she received multiple epidural steroid injections and L3 L4 on the right at [facility]. Initially she reported 6 or 7 months improvement on epidural steroid injections however with years the epidural steroid injection fade in effectiveness. She went back to Dr. Coyle and she was recommended to have facet joint injections, medial branch blocks and sacroiliac joint injections. Those injections were performed by [facility] and unfortunately those procedures were not effective for pain control. She tried NSAIDs to treat her pain and originally they were helping her but with years she escalated the doses of NSAIDs to 800 mg several times a day. She started to develop widespread bruises on her arms and forearms because of high doses of the NSAIDs and she had to stop the medication. [facility] Medical History Chronic pain syndrome Hypoglycemia Disc degeneration, lumbar Lumbar scoliosis Anxiety Asthma Back pain Arthritis Elevated cholesterol HTN (hypertension) Thyroid disease GERD (gastroesophageal reflux disease) Surgical History Hx of ovarian cystectomy Hx of hysterectomy Hx of appendectomy Hx of tonsillectomy Social History Patient Tobacco Use Status: Never used Tobacco Second Hand Smoke Exposure: No Review of Systems Const All systems reviewed & are unremarkable except as noted in HPI and below ENT Reports Normal hearing present Neuro Reports Normal hearing present, Denies Abnormal speech present, Denies confusion and Denies Sensory deficit (Neuro) Psych Denies confusion Physical Exam Vital Signs: Last Vital Signs Pulse 64 12/24/23 14:04 Resp 14 12/24/23 14:04 BP 126/66 12/24/23 14:04 Pulse Ox 99 12/24/23 14:04 Oxygen Delivery Method Room Air 12/24/23 14:04 BMI result Body Mass Index 18.8 Const General: no acute distress; No confusion Orientation/consciousness: patient oriented x3 and No confusion Eyes General: appearance normal, both eyes and all related structures Pupils: Equal, round and reactive pupils present EOM: EOMs intact bilaterally Neck Neck: Yes full ROM Chest Chest palpation & inspection: normal inspection of the chest Resp Effort & Inspection: normal respiratory effort, able to speak in complete sentences, normal respiratory pattern, no audible wheezes and no cough Cardio Jugular venous distension: no JVD GI Inspection: Yes normal to inspection Back/Spine/Pelvis Other: On the e inspection exaggerated kyphotic curve of the thoracic spine. Severe leftward scoliotic curve of the lumbar spine. Tenderness on palpation over the right SI joint and right sciatic notch. No tenderness on palpation over spinous processes or paraspinal muscles bilaterally. Limited flexion and extension due to pain and significant anatomical distortion. Able to stand on bilateral lower extremities without difficulty able to stand on tiptoes without difficulty. SLR is negative bilaterally Nuno test is negative bilaterally. Neuro General: patient oriented x3, gait normal and No confusion Cranial nerves: Yes CN's II-XII intact bilaterally, Yes Equal, round and reactive pupils present, Yes Normal hearing present and Yes Ability to bilaterally elevate shoulders present Speech: No Abnormal speech present Gait exam (Neuro): Normal gait present Motor exam (neuro): 5/5 motor strength present throughout Sensory Exam: No Sensory deficit (Neuro) Extrem Other: Hip exam no gross deformity no every time no edema no ecchymosis no tenderness of palpation over greater trochanter. No tenderness of palpation of the SI joint range of motion is intact. Lateral and medial hip rotation is negative for pain increase in the groin. General: No pedal edema Psych Speech and movement: Normal speech and movement present Affect: normal affect Attitude: cooperative Thought process: Normal thought process present Thought content: Normal thought content present Insight: Good insight present (Psych) Judgement: Good judgement present (Psych) Assessment & Plan Assessment & Plan (1) Spinal cord stimulator status: Code(s): Z96.89 - Presence of other specified functional implants Category: Medical (2) Chronic pain syndrome: Code(s): G89.4 - Chronic pain syndrome Category: Medical (3) Lumbar scoliosis: Code(s): M41.9 - Scoliosis, unspecified Category: Medical (4) Disc degeneration, lumbar: Code(s): M51.36 - Other intervertebral disc degeneration, lumbar region Category: Medical (5) Vertebrogenic low back pain: Code(s): M54.51 - Vertebrogenic low back pain Category: Medical (6) Radiculopathy, lumbar region: Code(s): M54.16 - Radiculopathy, lumbar region Category: Medical (7) Spinal stenosis, lumbar: Code(s): M48.061 - Spinal stenosis, lumbar region without neurogenic claudication Category: Medical Plan Discussion is as above. No new appointment is necessary unless patient receives less substantial pain relief or starts to develop changes in the postoperative wounds. She will continue to wear abdominal binder and observe mobility limitations for 4 more weeks. Coding Level of Care Code Est Pt Level 3 (03037) Diagnoses Spinal cord stimulator status Z96.89 Chronic pain syndrome G89.4 Lumbar scoliosis M41.9 Disc degeneration, lumbar M51.36 Vertebrogenic low back pain M54.51 Radiculopathy, lumbar region M54.16 Spinal stenosis, lumbar M48.061
[2023-12-24 14:04] VITALS: BP 126/66; PULSE 64; RESP 14; O2SAT 99; BMI 18.8
== END 2023-12-24 14:14 | disposition home or self-care (01) ==
PROVIDERS: Visit Provider Anesthesiology
DX: Z96.89 Presence of other specified functional implants (principal); G89.4 Chronic pain syndrome; M41.9 Scoliosis, unspecified; M51.36 Other intervertebral disc degeneration, lumbar region; M54.51 Vertebrogenic low back pain; M54.16 Radiculopathy, lumbar region; M48.061 Spinal stenosis, lumbar region without neurogenic claudication
CPT/HCPCS: 99213

== ENCOUNTER → 2023-12-24 13:48 | Outpatient (BNVA) | payer OTHER, SELFPAY | PROVIDERS: Visit Provider Anesthesiology | DX: M41.9 Scoliosis, unspecified (principal); M51.36 Other intervertebral disc degeneration, lumbar region; M54.51 Vertebrogenic low back pain; M54.16 Radiculopathy, lumbar region; M48.061 Spinal stenosis, lumbar region without neurogenic claudication; G89.4 Chronic pain syndrome; Z96.89 Presence of other specified functional implants | CPT/HCPCS: 99212 ==

== ENCOUNTER → 2024-03-29 12:45 | Outpatient (BNVA) | payer OTHER, SELFPAY | PROVIDERS: Visit Provider Anesthesiology ==